=== PATIENT | female | born 1940 | race Caucasian/White ===

== ENCOUNTER 2016-12-22 07:56 | Emergency (ER) | payer MEDICARE ==
[~2016-12-22] VITALS: Ht 172.7 cm; Wt 58.0 kg
[~2016-12-22 07:56] MED LIST: ASPI81TA82 PO; AUGM875T PO; CALC1TAB53; COQ-200C; E 101000; FOLI400T30 PO; LIPI10TA PO; MULT1TAB46; NOVOLOGP2 SQ; NOVONP2 SQ; TELM40 PO; VITA100020; VITA200T2 PO; VITA500T83 PO
[2016-12-22 08:10] VITALS: BP 142/64; PULSE 101; RESP 16; TEMP 97.5; O2SAT 100
[2016-12-22] MEDS: SODIUM CHLOR 0.9% 1000 ML INJ 1,000 ML IV ONE ×2 (08:15→08:50)
--- NOTE | 2016-12-22 08:19 | PD ---
HPI Chief Complaint: Cardiac Complaint Time Seen by Provider: 08:03 Travel History International Travel<30 days: No Contact w/Intl Traveler<30days: No Traveled to known affect area: No History of Present Illness HPI This 76-year-old female says that her heart rate this morning was around 90 which is unusually fast for her. She says she felt weak and felt like she was given a pass out area he has a history of hypertension and diabetes. She checked her blood sugar and it was over 300. She is not aware of any fever or chills. She did not have any chest pain or shortness of breath. She took her NPH this morning as well as Plavix 3 units because of the elevation of blood sugar. PFSH Past Medical History Cancer: No Cardiovascular Problems: Yes High Cholesterol: Yes Diabetes: Yes Patient Takes Glucophage: No Diminished Hearing: No Endocrine: Yes Gastrointestinal Disorders: Yes (DIVERTICULOSIS) Genitourinary: No Hepatitis: No Hiatal Hernia: No Hypertension: Yes Immune Disorder: No Musculoskeletal: Yes (OSTEOPOROSIS) Neurologic: No Psychiatric: No Respiratory: No Thyroid Disease: No Tetanus Vaccination: Unknown Influenza Vaccination: No ?: Not Past Surgical History Abdominal Surgery: Yes (HERNIA REPAIR, APPENDECTOMY) AICD: No Appendectomy: Yes Eye Surgery: Yes (LEFT CATARACT) Genitourinary Surgery: No Hysterectomy: No Joint Replacement: No Oral Surgery: Yes (TONSILLECTOMY/ADENOIDECTOMY) Pacemaker: No Tonsillectomy: Yes Other Surgery: Yes Social History Alcohol Use: No Tobacco Use: No Substance Use: No Allergies-Medications (Allergen,Severity, Reaction): Coded Allergies: No Known Allergies (Unverified Adverse Reaction, Unknown, 12/22/16) Reported Meds & Prescriptions Reported Meds & Active Scripts Active Reported Vitamin E Water Soluble (Vitamin E) 1,000 Unit Cap 1,000 Units PO DAILY Vitamin B-12 ER (Cyanocobalamin) 1,000 Mcg Tab 1,000 Mcg PO DAILY Multiple Vitamin 1 Tab 1 Tab PO DAILY Micardis (Telmisartan) 40 Mg Tab 40 Mg PO DAILY Novolin N Inj (Insulin Human NPH) 1,000 Unit/10 Ml Vial 15 Units SQ DAILY Novolin N Inj (Insulin Human NPH) 1,000 Unit/10 Ml Vial 0 SQ DIRECTED Sliding Scale As Directed. Novolin 70-30 Inj (Insulin Human Isoph/Insulin Regular) 1,000 Unit/10 Ml Vial 5 Units SQ DAILY@0600 Folic Acid 0.4 Mg Tab 400 Mcg PO DAILY Coq-10 (Coenzyme Q10 (Ubidecarenone)) 400 Mg Cap 1 Tab PO DAILY Calcium & Magnesium + Zinc (Aavzgym-Hbwirsoqo-Dkql) 334-134-5 Mg Tab 1 Tab PO DAILY Atorvastatin (Atorvastatin Calcium) 10 Mg Tab 10 Mg PO HS Aspirin 81 Mg Chew 81 Mg CHEW DAILY Review of Systems General / Constitutional: No: Fever, Chills Eyes: No: Diploplia, Blurred Vision HENT: Positive: Lightheadedness, No: Headaches, Vertigo Cardiovascular: No: Chest Pain or Discomfort, Palpitations Respiratory: No: Shortness of Breath, Wheezing Gastrointestinal: No: Vomiting, Diarrhea Genitourinary: No: Urgency Musculoskeletal: No: Myalgias, Arthralgias Skin: No Rash Neurologic: Positive: Weakness Hematologic/Lymphatic: No: Easy Bruising Physical Exam Narrative GENERAL: Well-developed female. Heart rate is 72 SKIN: Focused skin assessment warm/dry. HEAD: Atraumatic. Normocephalic. EYES: Pupils equal and round. No scleral icterus. No injection or drainage. ENT: No nasal bleeding or discharge. Mucous membranes pink and moist. NECK: Trachea midline. No JVD. CARDIOVASCULAR: Regular rate and rhythm. No murmur appreciated. RESPIRATORY: No accessory muscle use. Clear to auscultation. Breath sounds equal bilaterally. GASTROINTESTINAL: Abdomen soft, non-tender, nondistended. Hepatic and splenic margins not palpable. MUSCULOSKELETAL: No obvious deformities. No clubbing. No cyanosis. No edema. NEUROLOGICAL: Awake and alert. No obvious cranial nerve deficits. Motor grossly within normal limits. Normal speech. PSYCHIATRIC: Appropriate mood and affect; insight and judgment normal. Data Data Last Documented VS Vital Signs Date Time Temp Pulse Resp B/P (MAP) Pulse Ox O2 Delivery O2 Flow Rate FiO2 12/22/16 08:15 88 16 97 Room Air 12/22/16 08:10 97.5 142/64 (90) Orders Orders Complete Blood Count With Diff (12/22/16 08:12) Comprehensive Metabolic Panel (12/22/16 08:12) Troponin I (12/22/16 08:12) Urinalysis - C+S If Indicated (12/22/16 08:12) Magnesium (Mg) (12/22/16 08:12) Beta Hydroxybutyrate (Acetone) (12/22/16 08:12) Sodium Chlor 0.9% 1000 Ml Inj (Ns 1000 M (12/22/16 08:15) Insulin Human Regular Inj (Novolin R Inj (12/22/16 09:30) Morphine Inj (Morphine Inj) (12/22/16 09:30) Insulin Human Regular Inj (Novolin R Inj (12/22/16 11:00) Labs Laboratory Tests Test 12/22/16 08:37 12/22/16 10:17 White Blood Count 7.2 TH/MM3 Red Blood Count 4.05 MIL/MM3 Hemoglobin 12.6 GM/DL Hematocrit 38.3 % Mean Corpuscular Volume 94.6 FL Mean Corpuscular Hemoglobin 31.3 PG Mean Corpuscular Hemoglobin Concent 33.0 % Red Cell Distribution Width 12.8 % Platelet Count 282 TH/MM3 Mean Platelet Volume 7.1 FL Neutrophils (%) (Auto) 83.0 % Lymphocytes (%) (Auto) 10.9 % Monocytes (%) (Auto) 2.8 % Eosinophils (%) (Auto) 2.5 % Basophils (%) (Auto) 0.8 % Neutrophils # (Auto) 5.9 TH/MM3 Lymphocytes # (Auto) 0.8 TH/MM3 Monocytes # (Auto) 0.2 TH/MM3 Eosinophils # (Auto) 0.2 TH/MM3 Basophils # (Auto) 0.1 TH/MM3 CBC Comment DIFF FINAL Differential Comment Blood Urea Nitrogen 22 MG/DL Creatinine 0.93 MG/DL Random Glucose 391 MG/DL Total Protein 6.8 GM/DL Albumin 3.7 GM/DL Calcium Level 8.8 MG/DL Magnesium Level 2.0 MG/DL Alkaline Phosphatase 94 U/L Aspartate Amino Transf (AST/SGOT) 24 U/L Alanine Aminotransferase (ALT/SGPT) 27 U/L Total Bilirubin 0.8 MG/DL Sodium Level 130 MEQ/L Potassium Level 4.1 MEQ/L Chloride Level 95 MEQ/L Carbon Dioxide Level 22.1 MEQ/L Anion Gap 13 MEQ/L Estimat Glomerular Filtration Rate 59 ML/MIN Troponin I LESS THAN 0.02 NG/ML B-Hydroxybutyrate 2.52 MMOL/L Urine Collection Type CLEAN CATCH Urine Color YELLOW Urine Turbidity CLEAR Urine pH 5.5 Urine Specific [place] 1.022 Urine Protein NEG mg/dL Urine Glucose (UA) 1000 OR GREATER mg/dL Urine Ketones 80 OR GREATER mg/dL Urine Occult Blood TRACE Urine Nitrite NEG Urine Bilirubin NEG Urine Leukocyte Esterase NEG Urine RBC 0-3 /hpf Urine Squamous Epithelial Cells 0-5 /hpf Microscopic Urinalysis Comment CULT NOT INDICATED Urine Collection Time 10:17 [facility] Medical Decision Making Medical Screen Exam Complete: Yes Emergency Medical Condition: Yes Medical Record Reviewed: Yes Differential Diagnosis Differential includes dysrhythmia, dehydration, hyperglycemia Narrative Course EKG shows sinus rhythm with first-degree AV block. It is unchanged from previous tracings. She was given some IV fluids and 10 units of regular insulin. On rechecking his blood sugar it is 214. She is stable for discharge Diagnosis Primary Impression: Hyperglycemia Disposition: 01 DISCHARGE HOME Condition: Stable Cezar Quinn MD Dec 22, 2016 08:19
[2016-12-22] MEDS ORDERED: VITA-141 PO (08:21)
[2016-12-22] MEDS ORDERED: ATOR10TA15 PO (08:21)
[2016-12-22] MEDS ORDERED: NOVONP2 SQ ×2 (08:21)
[2016-12-22] MEDS ORDERED: FOLI400T PO (08:21)
[2016-12-22] MEDS ORDERED: COEN400C PO (08:21)
[2016-12-22] MEDS ORDERED: ASPI-516 CHEW (08:21)
[2016-12-22] MEDS ORDERED: VITA10002 PO (08:21)
[2016-12-22] MEDS ORDERED: MULTTAB67 PO (08:21)
[2016-12-22] MEDS ORDERED: CALC1TAB53 PO (08:21)
[2016-12-22] MEDS ORDERED: TELM40 PO (08:21)
[2016-12-22] MEDS ORDERED: NOVO7030P2 SQ (08:21)
[2016-12-22 08:47] LABS: AUTOMATED NEUTROPHIL # 5.9 TH/MM3 (1.8-7.7); BASOPHIL # 0.1 TH/MM3 (0-0.2); BASOPHIL % 0.8 % (0.0-2.0); EOSINOPHIL # 0.2 TH/MM3 (0-0.4); EOSINOPHIL % 2.5 % (0.0-4.0); HEMATOCRIT 38.3 % (35.0-46.0); HEMO FLAGS DIFF FINAL; LYMPH % 10.9 % (9.0-44.0); LYMPHOCYTE # 0.8 TH/MM3 (1.0-4.8); MEAN CELL VOLUME 94.6 FL (80.0-100.0); MEAN CORPUSCULAR HEMOGLOBIN 31.3 PG (27.0-34.0); MONO % 2.8 % (0.0-8.0); PLATELET COUNT 282 TH/MM3 (150-450); RED BLOOD COUNT 4.05 MIL/MM3 (4.00-5.30); RED CELL DISTRIBUTION WIDTH 12.8 % (11.6-17.2); WHITE BLOOD COUNT 7.2 TH/MM3 (4.0-11.0)
[2016-12-22 08:56] LABS: CHLORIDE 95 MEQ/L (98-107); POTASSIUM 4.1 MEQ/L (3.5-5.1); SODIUM (NA) 130 MEQ/L (136-145)
[2016-12-22 08:59] LABS: ANION GAP 13 MEQ/L (5-15); BICARBONATE 22.1 MEQ/L (21.0-32.0)
[2016-12-22 09:00] LABS: BLOOD UREA NITROGEN 22 MG/DL (7-18)
[2016-12-22 09:02] LABS: ALT (GPT) 27 U/L (10-53); AST (GOT) 24 U/L (15-37)
[2016-12-22 09:03] LABS: GLOMERULAR FILTRATION RATE 59 ML/MIN (>89)
[2016-12-22 09:04] LABS: TOTAL BILIRUBIN ADULT 0.8 MG/DL (0.2-1.0)
[2016-12-22 09:05] LABS: ALKALINE PHOSPHATASE 94 U/L (45-117)
[2016-12-22 09:14] LABS: BETA-HYDROXYBUTYRATE 2.52 MMOL/L (0.00-0.39)
[2016-12-22] MEDS ORDERED: INSULIN HUMAN REGULAR 1,000 UNITS/10 ML VIAL SQ ONE ×2 (09:30→11:00)
[2016-12-22] MEDS ORDERED: MORPHINE SULFATE 4 MG/ML INJ IV PUSH ONE (09:30)
[2016-12-22 10:21] LABS: BLOOD, URINE TRACE (NEG); GLUCOSE,URINE 1000 OR GREATER mg/dL (NEG); KETONE, URINE 80 OR GREATER mg/dL (NEG); NITRITE,URINE NEG (NEG); PH, URINE 5.5 (5.0-8.5)
[2016-12-22 10:25] LABS: METHOD OF COLLECTION CLEAN CATCH; URINE COLOR YELLOW (YELLW/STRAW)
[2016-12-22 10:26] LABS: COMMENT (UR) CULT NOT INDICATED; CULTURE IF INDICATED CULT NOT INDICATED; RBC, URINE 0-3 /hpf (0-3); SQUAMOUS EPITHELIAL CELL URINE 0-5 /hpf (0-5)
[2016-12-22 11:16] VITALS: BP 140/62
--- NOTE | 2016-12-23 10:06 | EKG ---
Date Performed: 12/22/2016 Time Performed: 08:05:59 PTAGE: 76 years EKG: Sinus rhythm WITH FIRST DEGREE AV BLOCK ABNORMAL ECG PREVIOUS TRACING : 02/13/2015 11.50 DOCTOR: Shade Jansen Interpretating Date/Time 12/23/2016 10:05:36
== END 2016-12-22 11:18 | disposition home or self-care (01) ==
LOC: PHED 07:56
DX: E11.65 Type 2 diabetes mellitus with hyperglycemia (principal); E78.00 Pure hypercholesterolemia, unspecified; I10 Essential (primary) hypertension; R94.31 Abnormal electrocardiogram [ECG] [EKG]; Z79.4 Long term (current) use of insulin
CPT/HCPCS: 80053; 81001; 82010; 83735; 84484; 85025; 93005; 96372; 99284; J1815; J7030

== ENCOUNTER 2017-02-17 12:12 | Inpatient (IN) | payer MEDICARE ==
[2017-02-17] VITALS (7 sets, daily range): BP systolic 114–193; BP diastolic 57–81; PULSE 72–83; RESP 16–20; TEMP 96.5–97.7; O2SAT 96–100
[~2017-02-17] VITALS: Ht 170.2 cm; Wt 60.0 kg
[~2017-02-17 12:12] MED LIST changes: +ASPI-516 CHEW; -ASPI81TA82 PO; +ATOR10TA15 PO; -AUGM875T PO; -CALC1TAB53; +CALC1TAB53 PO; +COEN400C PO; -COQ-200C; -E 101000; +FOLI400T PO; -FOLI400T30 PO; -LIPI10TA PO; -MULT1TAB46; +MULTTAB67 PO; +NOVO7030P2 SQ; -NOVOLOGP2 SQ; +VITA-141 PO; +VITA10002 PO; -VITA100020; -VITA200T2 PO; -VITA500T83 PO
[2017-02-17] MEDS ORDERED: HYDROmorphone HCL PF 2 MG/ML VIAL IV PUSH ONE (12:45)
[2017-02-17] MEDS ORDERED: SODIUM CHLORIDE 0.9% FLUSH 10 ML FLUSH IVF PRN (12:45)
[2017-02-17] MEDS ORDERED: ONDANSETRON HCL 4 MG/2 ML VIAL IVP ONE (12:45)
[2017-02-17 13:08] LABS: AUTOMATED NEUTROPHIL # 4.5 TH/MM3 (1.8-7.7); BASOPHIL % 0.8 % (0.0-2.0); EOSINOPHIL # 0.1 TH/MM3 (0-0.4); EOSINOPHIL % 1.8 % (0.0-4.0); HEMATOCRIT 38.7 % (35.0-46.0); LYMPH % 20.8 % (9.0-44.0); LYMPHOCYTE # 1.3 TH/MM3 (1.0-4.8); MEAN CELL VOLUME 97.5 FL (80.0-100.0); MEAN CORPUSCULAR HEMOGLOBIN 32.6 PG (27.0-34.0); MEAN CORPUSCULAR HGB CONC 33.5 % (32.0-36.0); MEAN PLATELET VOLUME 7.3 FL (7.0-11.0); MONO % 6.2 % (0.0-8.0); MONOCYTE # 0.4 TH/MM3 (0-0.9); NEUT % 70.4 % (16.0-70.0); PLATELET COUNT 265 TH/MM3 (150-450); RED BLOOD COUNT 3.97 MIL/MM3 (4.00-5.30); WHITE BLOOD COUNT 6.3 TH/MM3 (4.0-11.0)
--- NOTE | 2017-02-17 13:19 | RADRPT ---
EXAM DATE/TIME: 02/17/2017 12:53 [facility] COMPARISON: No previous studies available for comparison. INDICATIONS : Right hip pain after fall. MEDICAL HISTORY : None. SURGICAL HISTORY : None. ENCOUNTER: Initial ACUITY: 1 day PAIN SCORE: 10/10 LOCATION: Right hip FINDINGS: Intertrochanteric fracture right hip with angulation. Left hemipelvis intact CONCLUSION: Intertrochanteric fracture right hip Josh Stoner MD FACR on February 17, 2017 at 13:16 Board Certified Radiologist. This report was verified electronically.
[2017-02-17 13:24] LABS: ALT (GPT) 29 U/L (10-53)
[2017-02-17 13:26] LABS: ALKALINE PHOSPHATASE 97 U/L (45-117); TOTAL BILIRUBIN ADULT 0.4 MG/DL (0.2-1.0); TOTAL PROTEIN 7.1 GM/DL (6.4-8.2)
[2017-02-17 13:27] LABS: ALBUMIN 3.7 GM/DL (3.4-5.0); AST (GOT) 33 U/L (15-37); BICARBONATE 24.7 MEQ/L (21.0-32.0); BLOOD UREA NITROGEN 17 MG/DL (7-18); CALCIUM 8.6 MG/DL (8.5-10.1); CHLORIDE 101 MEQ/L (98-107); CREATININE 0.84 MG/DL (0.50-1.00); GLOMERULAR FILTRATION RATE 66 ML/MIN (>89); GLUCOSE,RANDOM 329 MG/DL (74-106); SODIUM (NA) 133 MEQ/L (136-145)
--- NOTE | 2017-02-17 13:37 | RADRPT ---
EXAM DATE/TIME: 02/17/2017 12:48 [facility] COMPARISON: No previous studies available for comparison. INDICATIONS : Shortness of breath. MEDICAL HISTORY : None. SURGICAL HISTORY : None. ENCOUNTER: Initial ACUITY: 1 day PAIN SCORE: 0/10 LOCATION: Bilateral chest FINDINGS: A single view of the chest demonstrates the lungs to be symmetrically aerated without evidence of mas s, infiltrate or effusion. The cardiomediastinal contours are unremarkable. Osseous structures are intact. CONCLUSION: No acute disease. Wilfrido Mendoza MD on February 17, 2017 at 13:35 Board Certified Radiologist. This report was verified electronically.
--- NOTE | 2017-02-17 13:58 | PD ---
HPI Chief Complaint: Fall Time Seen by Provider: 12:29 Travel History International Travel<30 days: No Contact w/Intl Traveler<30days: No Traveled to known affect area: No History of Present Illness HPI 76-year-old female presents the emergency department via EMS status [place] mall. Patient is here with pain to the right hip. Patient has shortening and internal rotation of the right lower leg. Pain is 10 out of 10. Patient did receive 6 mg of morphine in the ambulance. Patient last ate a meal at 9:30 this morning. Patient did have a Coca[employer] after her fall and she felt her blood sugar might be getting low. A sugar and the rate was 336. Patient takes medication for hypertension and type II diabetes requiring insulin. PFSH Past Medical History Cancer: No Cardiovascular Problems: Yes High Cholesterol: Yes Diabetes: Yes (on insulin) Patient Takes Glucophage: No Diminished Hearing: No Endocrine: Yes Gastrointestinal Disorders: Yes (DIVERTICULOSIS) Genitourinary: No Hepatitis: No Hiatal Hernia: Yes Hypertension: Yes Immune Disorder: No Musculoskeletal: Yes (OSTEOPOROSIS) Neurologic: No Psychiatric: No Respiratory: No Thyroid Disease: No Tetanus Vaccination: Unknown ?: Not Past Surgical History Abdominal Surgery: Yes (HERNIA REPAIR, APPENDECTOMY) AICD: No Appendectomy: Yes Eye Surgery: Yes (LEFT CATARACT) Genitourinary Surgery: No Hysterectomy: No Joint Replacement: No Oral Surgery: Yes (TONSILLECTOMY/ADENOIDECTOMY) Pacemaker: No Tonsillectomy: Yes Other Surgery: Yes Social History Alcohol Use: No Tobacco Use: No Substance Use: No Allergies-Medications (Allergen,Severity, Reaction): Coded Allergies: No Known Allergies (Unverified Adverse Reaction, Unknown, 02/17/17) Reported Meds & Prescriptions Reported Meds & Active Scripts Active Reported Vitamin E Water Soluble (Vitamin E) 1,000 Unit Cap 1,000 Units PO DAILY Vitamin B-12 ER (Cyanocobalamin) 1,000 Mcg Tab 1,000 Mcg PO DAILY Multiple Vitamin 1 Tab 1 Tab PO DAILY Micardis (Telmisartan) 40 Mg Tab 40 Mg PO DAILY Novolin N Inj (Insulin Human NPH) 1,000 Unit/10 Ml Vial 15 Units SQ DAILY Novolin N Inj (Insulin Human NPH) 1,000 Unit/10 Ml Vial 0 SQ DIRECTED Sliding Scale As Directed. Novolin 70-30 Inj (Insulin Human Isoph/Insulin Regular) 1,000 Unit/10 Ml Vial 5 Units SQ DAILY@0600 Folic Acid 0.4 Mg Tab 400 Mcg PO DAILY Coq-10 (Coenzyme Q10 (Ubidecarenone)) 400 Mg Cap 1 Tab PO DAILY Calcium & Magnesium + Zinc (Fdcfagz-Budjsgauk-Zkws) 334-134-5 Mg Tab 1 Tab PO DAILY Atorvastatin (Atorvastatin Calcium) 10 Mg Tab 10 Mg PO HS Aspirin 81 Mg Chew 81 Mg CHEW DAILY Review of Systems Except as stated in HPI: all other systems reviewed are Neg General / Constitutional: No: Fever Eyes: No: Visual changes HENT: No: Headaches Cardiovascular: No: Chest Pain or Discomfort Respiratory: No: Shortness of Breath Gastrointestinal: No: Abdominal Pain Genitourinary: No: Dysuria Musculoskeletal: Positive: Arthralgias, Limited ROM, Pain Skin: No Rash Neurologic: No: Weakness Psychiatric: No: Depression Endocrine: No: Polydipsia Hematologic/Lymphatic: No: Easy Bruising Physical Exam Narrative GENERAL: Patient is alert and oriented 3 and in moderate distress. SKIN: Warm and dry. Normal color. Normal turgor. HEAD: Atraumatic. Normocephalic. EYES: Pupils equal and round. No scleral icterus. No injection or drainage. ENT: No nasal bleeding or discharge. Mucous membranes pink and moist. No dental injury. Pharynx is clear. Airway is patent. NECK: Trachea midline. Supple. CARDIOVASCULAR: Regular rate and rhythm. RESPIRATORY: No accessory muscle use. Clear to auscultation. Breath sounds equal bilaterally. GASTROINTESTINAL: Abdomen soft, non-tender, nondistended. Hepatic and splenic margins not palpable. MUSCULOSKELETAL: Extremities without clubbing, cyanosis, or edema. Patient has obvious deformity to the right hip with localized swelling, external rotation and shortening. Neurovascular exam of the distal right lower leg is normal. Patient is able wiggle her toes without difficulty. Pulses are intact. NEUROLOGICAL: Awake and alert. No obvious cranial nerve deficits. Motor grossly within normal limits. Normal speech. PSYCHIATRIC: Appropriate mood and affect; insight and judgment normal. Data Data Last Documented VS Vital Signs Date Time Temp Pulse Resp B/P (MAP) Pulse Ox O2 Delivery O2 Flow Rate FiO2 02/17/17 13:45 82 16 190/74 (112) 96 Room Air 02/17/17 12:20 97.7 Orders Orders Electrocardiogram (02/17/17 12:33) Complete Blood Count With Diff (02/17/17 12:33) Comprehensive Metabolic Panel (02/17/17 12:33) Prothrombin Time / Inr (Pt) (02/17/17 12:33) Act Partial Throm Time (Ptt) (02/17/17 12:33) Urinalysis - C+S If Indicated (02/17/17 12:33) Type And Screen (02/17/17 12:33) Chest, Single Ap (02/17/17 12:33) Hip, Uni(Ap&Lat) W Ap Pelvis (02/17/17 12:33) Iv Access Insert/Monitor (02/17/17 12:33) Urinary Catheter Insert/Apply (02/17/17 12:33) Oximetry (02/17/17 12:33) Ecg Monitoring (02/17/17 12:33) Ondansetron Inj (Zofran Inj) (02/17/17 12:45) Sodium Chloride 0.9% Flush (Ns Flush) (02/17/17 12:45) Hydromorphone Pf Inj (Dilaudid Pf Inj) (02/17/17 12:45) Labs Laboratory Tests Test 02/17/17 12:30 02/17/17 13:35 White Blood Count 6.3 TH/MM3 Red Blood Count 3.97 MIL/MM3 Hemoglobin 13.0 GM/DL Hematocrit 38.7 % Mean Corpuscular Volume 97.5 FL Mean Corpuscular Hemoglobin 32.6 PG Mean Corpuscular Hemoglobin Concent 33.5 % Red Cell Distribution Width 14.0 % Platelet Count 265 TH/MM3 Mean Platelet Volume 7.3 FL Neutrophils (%) (Auto) 70.4 % Lymphocytes (%) (Auto) 20.8 % Monocytes (%) (Auto) 6.2 % Eosinophils (%) (Auto) 1.8 % Basophils (%) (Auto) 0.8 % Neutrophils # (Auto) 4.5 TH/MM3 Lymphocytes # (Auto) 1.3 TH/MM3 Monocytes # (Auto) 0.4 TH/MM3 Eosinophils # (Auto) 0.1 TH/MM3 Basophils # (Auto) 0.0 TH/MM3 CBC Comment DIFF FINAL Differential Comment Prothrombin Time 10.0 SEC Prothromb Time International Ratio 1.0 RATIO Activated Partial Thromboplast Time 22.9 SEC Blood Urea Nitrogen 17 MG/DL Creatinine 0.84 MG/DL Random Glucose 329 MG/DL Total Protein 7.1 GM/DL Albumin 3.7 GM/DL Calcium Level 8.6 MG/DL Alkaline Phosphatase 97 U/L Aspartate Amino Transf (AST/SGOT) 33 U/L Alanine Aminotransferase (ALT/SGPT) 29 U/L Total Bilirubin 0.4 MG/DL Sodium Level 133 MEQ/L Potassium Level 4.2 MEQ/L Chloride Level 101 MEQ/L Carbon Dioxide Level 24.7 MEQ/L Anion Gap 7 MEQ/L Estimat Glomerular Filtration Rate 66 ML/MIN MDM Medical Decision Making Medical Screen Exam Complete: Yes Emergency Medical Condition: Yes Differential Diagnosis Fall. Right hip pain. Right hip fracture. Narrative Course Patient appears mildly stable at time of exam. Labs ordered including CBC, CMP, PTT and INR, type and screen, EKG and chest x- ray. X-ray of the right hip and pelvis is ordered. IV access is obtained patient is given 1 mg Dilantin IV. Patient is made nothing by mouth. Chest x-ray is unremarkable. EKG shows normal sinus rhythm without significant ST-T changes. X-ray of the right hip shows intertrochanteric fracture with displacement and rotation. CBC unremarkable. Coagulation studies are unremarkable. Chemistries unremarkable except for sodium 133, GFR 66, random glucose is 329. Johnson catheter is placed. Urinalysis is ordered. Call was placed to Dr. Jay and the patient's findings are discussed. Dr. Jay requests hospitalist admission and keeping her nothing by mouth she may go to surgery this afternoon. Call was placed to [facility] hospitalist for admission orders. Admitting Information Admitting Physician Requests: Observation Condition: Stable Ahsan Cabrera Feb 17, 2017 13:58
[2017-02-17 14:07] LABS: BILIRUBIN, URINE NEG (NEG); BLOOD, URINE NEG (NEG); GLUCOSE,URINE 1000 mg/dL (NEG); KETONE, URINE 10 mg/dL (NEG); MUCUS URINE FEW /lpf (OCC); NITRITE,URINE NEG (NEG); PH, URINE 5.5 (5.0-8.5); URINE COLOR LIGHT-YELLOW (YELLW/STRAW); URINE LEUKOCYTE ESTERASE NEG (NEG)
--- NOTE | 2017-02-17 14:12 | PD ---
Physical Exam Date Seen by Provider: Feb 17, 2017 Narrative This patient presents with a right hip injury. She lost her balance and fell and landed on her right hip while shopping at the mall. Data Data Last Documented VS Vital Signs Date Time Temp Pulse Resp B/P (MAP) Pulse Ox O2 Delivery O2 Flow Rate FiO2 02/17/17 13:45 82 16 190/74 (112) 96 Room Air 02/17/17 12:20 97.7 Orders Orders Electrocardiogram (02/17/17 12:33) Complete Blood Count With Diff (02/17/17 12:33) Comprehensive Metabolic Panel (02/17/17 12:33) Prothrombin Time / Inr (Pt) (02/17/17 12:33) Act Partial Throm Time (Ptt) (02/17/17 12:33) Urinalysis - C+S If Indicated (02/17/17 12:33) Type And Screen (02/17/17 12:33) Chest, Single Ap (02/17/17 12:33) Hip, Uni(Ap&Lat) W Ap Pelvis (02/17/17 12:33) Iv Access Insert/Monitor (02/17/17 12:33) Urinary Catheter Insert/Apply (02/17/17 12:33) Oximetry (02/17/17 12:33) Ecg Monitoring (02/17/17 12:33) Ondansetron Inj (Zofran Inj) (02/17/17 12:45) Sodium Chloride 0.9% Flush (Ns Flush) (02/17/17 12:45) Hydromorphone Pf Inj (Dilaudid Pf Inj) (02/17/17 12:45) Admit To Inpatient (02/17/17 ) Code Status (02/17/17 14:08) Vital Signs (Adult) Q4H (02/17/17 14:08) Activity Bed Rest (02/17/17 14:08) Diet Npo (02/17/17 Dinner) Sodium Chloride 0.9% Flush (Ns Flush) (02/17/17 14:15) Sodium Chloride 0.9% Flush (Ns Flush) (02/17/17 21:00) Acetaminophen (Tylenol) (02/17/17 14:15) Ondansetron Inj (Zofran Inj) (02/17/17 14:15) Basic Metabolic Panel (Bmp) (02/18/17 06:00) Complete Blood Count With Diff (02/18/17 06:00) Electrocardiogram (02/17/17 14:08) Pt Request For Service (02/17/17 14:08) Scd Bilateral/Knee High CONNER.BID (02/17/17 14:08) Naloxone Inj (Narcan Inj) (02/17/17 14:15) Magnesium Hydroxide Liq (Milk Of Magnesi (02/17/17 14:15) Inpatient Certification (02/17/17 ) Labs Laboratory Tests Test 02/17/17 12:30 02/17/17 13:35 White Blood Count 6.3 TH/MM3 Red Blood Count 3.97 MIL/MM3 Hemoglobin 13.0 GM/DL Hematocrit 38.7 % Mean Corpuscular Volume 97.5 FL Mean Corpuscular Hemoglobin 32.6 PG Mean Corpuscular Hemoglobin Concent 33.5 % Red Cell Distribution Width 14.0 % Platelet Count 265 TH/MM3 Mean Platelet Volume 7.3 FL Neutrophils (%) (Auto) 70.4 % Lymphocytes (%) (Auto) 20.8 % Monocytes (%) (Auto) 6.2 % Eosinophils (%) (Auto) 1.8 % Basophils (%) (Auto) 0.8 % Neutrophils # (Auto) 4.5 TH/MM3 Lymphocytes # (Auto) 1.3 TH/MM3 Monocytes # (Auto) 0.4 TH/MM3 Eosinophils # (Auto) 0.1 TH/MM3 Basophils # (Auto) 0.0 TH/MM3 CBC Comment DIFF FINAL Differential Comment Prothrombin Time 10.0 SEC Prothromb Time International Ratio 1.0 RATIO Activated Partial Thromboplast Time 22.9 SEC Blood Urea Nitrogen 17 MG/DL Creatinine 0.84 MG/DL Random Glucose 329 MG/DL Total Protein 7.1 GM/DL Albumin 3.7 GM/DL Calcium Level 8.6 MG/DL Alkaline Phosphatase 97 U/L Aspartate Amino Transf (AST/SGOT) 33 U/L Alanine Aminotransferase (ALT/SGPT) 29 U/L Total Bilirubin 0.4 MG/DL Sodium Level 133 MEQ/L Potassium Level 4.2 MEQ/L Chloride Level 101 MEQ/L Carbon Dioxide Level 24.7 MEQ/L Anion Gap 7 MEQ/L Estimat Glomerular Filtration Rate 66 ML/MIN Urine Color LIGHT-YELLOW Urine Turbidity CLEAR Urine pH 5.5 Urine Specific [place] 1.018 Urine Protein NEG mg/dL Urine Glucose (UA) 1000 mg/dL Urine Ketones 10 mg/dL Urine Occult Blood NEG Urine Nitrite NEG Urine Bilirubin NEG Urine Urobilinogen LESS THAN 2.0 MG/DL Urine Leukocyte Esterase NEG Urine RBC LESS THAN 1 /hpf Urine WBC LESS THAN 1 /hpf Urine Mucus FEW /lpf Microscopic Urinalysis Comment CATH-CULT NOT IND MDM Supervised Visit with MARYCHUY: Yes Narrative Course I, Dr. Reese, have reviewed the advance practice practitioner's documentation and am in agreement, met with the patient face to face, made the diagnosis, and the medical decision making was done by me. *My assessment and Findings: The patient is awake and alert. Her right lower extremity is shortened and externally rotated. She has marked tenderness in the right groin. She is distally neurovascularly intact. X-ray to my interpretation shows a right intertrochanteric fracture. Please see Krystian Cabrera PA-C's note for results of laboratory and radiographic evaluation, ED course, final diagnosis and disposition Condition: Stable Virginia Reese MD Feb 17, 2017 14:12
[2017-02-17] MEDS ORDERED: ACETAMINOPHEN 325 MG TAB PO PRN (14:15)
[2017-02-17] MEDS ORDERED: cloNIDine HCL 0.2 MG TAB PO PRN (14:15)
[2017-02-17] MEDS ORDERED: SODIUM CHLORIDE 0.9% FLUSH 10 ML FLUSH IV FLUSH PRN (14:15)
[2017-02-17] MEDS ORDERED: MAGNESIUM HYDROXIDE SUSP 30 ML CUP PO PRN (14:15)
[2017-02-17] MEDS ORDERED: ACETAMINOPHEN/HYDROcodone 325 MG/5 MG TAB PO PRN (14:15)
[2017-02-17] MEDS ORDERED: HYDROmorphone HCL PF 2 MG/ML VIAL IV PUSH PRN (14:15)
[2017-02-17] MEDS ORDERED: ENALAPRILAT 1.25 MG/ML VIAL IV PRN (14:15)
[2017-02-17] MEDS ORDERED: ONDANSETRON HCL 4 MG/2 ML VIAL IVP PRN ×2 (14:15→18:00)
[2017-02-17] MEDS ORDERED: NALOXONE HCL 0.4 MG/ML AMP IV PUSH PRN (14:15)
--- NOTE | 2017-02-17 14:30 | HHI.HP ---
HPI Service [facility] Hospitalists Primary Care Physician Benny Johnson MD Admission Diagnosis Right Hip Fracture Chief Complaint: Fall with hip pain Travel History International Travel<30 Days: No Contact w/Intl Traveler <30 Da: No Traveled to Known Affected Are: No History of Present Illness This is a 76-year-old female patient with past medical history which includes diabetes mellitus requiring insulin, first-degree AV block, chronic anemia, hypertension, hyperlipidemia who presents the emergency department via EMS status [place]. Patient reports that she was looking one way and walking the other way then tripped and fell. On admission patient has shortening and internal rotation of the right lower leg. Patient denies LOC or head trauma. X-ray reviewed and reveals right hip intertrochanteric fracture. Patient is S/P intramedullary femoral nail placement with Dr. Jay 02/17/17. Patient reports pain is tolerable at this time. Review of Systems Constitutional: DENIES: Fatigue, Fever, Chills Eyes: DENIES: Blurred vision, Diplopia, Vision loss Respiratory: DENIES: Cough, Sputum production, Shortness of breath Cardiovascular: DENIES: Chest pain, Palpitations, Dyspnea on Exertion Gastrointestinal: DENIES: Abdominal pain, Constipation, Diarrhea, Nausea, Vomiting Musculoskeletal: COMPLAINS OF: Joint pain, Muscle aches, Joint Swelling Neurologic: DENIES: Headache, Seizures, Speech Problems Psychiatric: DENIES: Anxiety, Confusion, Depression Past Family Social History Past Medical History diabetes mellitus requiring insulin, first-degree AV block, chronic anemia, hypertension, hyperlipidemia Past Surgical History Appendectomy, cataract surgery, colonoscopy, and femoral hernia repair, inguinal hernia repair, tonsillectomy and adenoidectomy Reported Medications Vitamin E Water Soluble (Vitamin E) 1,000 Unit Cap 1,000 Units PO DAILY Vitamin B-12 ER (Cyanocobalamin) 1,000 Mcg Tab 1,000 Mcg PO DAILY Multiple Vitamin 1 Tab 1 Tab PO DAILY Micardis (Telmisartan) 40 Mg Tab 40 Mg PO DAILY Novolin N Inj (Insulin Human NPH) 1,000 Unit/10 Ml Vial 15 Units SQ DAILY Novolin N Inj (Insulin Human NPH) 1,000 Unit/10 Ml Vial 0 SQ DIRECTED Sliding Scale As Directed. Novolin 70-30 Inj (Insulin Human Isoph/Insulin Regular) 1,000 Unit/10 Ml Vial 5 Units SQ DAILY@0600 Folic Acid 0.4 Mg Tab 400 Mcg PO DAILY Coq-10 (Coenzyme Q10 (Ubidecarenone)) 400 Mg Cap 1 Tab PO DAILY Calcium & Magnesium + Zinc (Avlhljm-Jlghkxlur-Lacv) 334-134-5 Mg Tab 1 Tab PO DAILY Atorvastatin (Atorvastatin Calcium) 10 Mg Tab 10 Mg PO HS Aspirin 81 Mg Chew 81 Mg CHEW DAILY Allergies: Coded Allergies: No Known Allergies (Unverified Adverse Reaction, Unknown, 02/17/17) Active Ordered Medications Current Medications Medications (Trade) Dose Ordered Sig/Afshan Route Start Time Stop Time Status Last Admin (NS Flush) 2 ml UNSCH PRN IVF 02/17/17 12:45 (NS Flush) 2 ml UNSCH PRN IV FLUSH 02/17/17 14:15 UNV (NS Flush) 2 ml BID IV FLUSH 02/17/17 21:00 UNV (Tylenol) 650 mg Q4H PRN PO 02/17/17 14:15 UNV (Zofran Inj) 4 mg Q6H PRN IVP 02/17/17 14:15 UNV (Narcan Inj) 0.4 mg UNSCH PRN IV PUSH 02/17/17 14:15 UNV (Milk Of [place] Liq) 30 ml Q12H PRN PO 02/17/17 14:15 UNV ([place] 5-325 Mg) 1 tab Q6H PRN PO 02/17/17 14:15 UNV (Dilaudid Pf Inj) 1 mg Q4H PRN IV PUSH 02/17/17 14:15 UNV (NovoLOG SUPPLEMENTAL SCALE) 1 ACHS SLIDING SCALE SQ 02/17/17 17:00 UNV (Aspirin Chew) 81 mg DAILY CHEW 02/18/17 09:00 UNV (Lipitor) 10 mg HS PO 02/17/17 21:00 UNV Non-Formulary Medication 40 mg DAILY PO 02/18/17 09:00 UNV (Vasotec Inj) 1.25 mg Q6H PRN IV 02/17/17 14:15 UNV (Catapres) 0.2 mg Q6H PRN PO 02/17/17 14:15 UNV Family History Reviewed and noncontributory Social History Denies EtOH use tobacco use or illicit drug use Physical Exam Vital Signs Vital Signs Date Time Temp Pulse Resp B/P (MAP) Pulse Ox O2 Delivery O2 Flow Rate FiO2 02/17/17 13:45 82 16 190/74 (112) 96 Room Air 02/17/17 13:43 18 02/17/17 12:37 18 100 02/17/17 12:37 74 100 02/17/17 12:20 97.7 72 20 193/81 (118) 99 Physical Exam GENERAL: This is a well-nourished, well-developed patient, in no apparent distress. SKIN: Post- op dressing dry and intact CARDIOVASCULAR: Regular rate and rhythm without murmurs, gallops, or rubs. RESPIRATORY: Clear to auscultation. Breath sounds equal bilaterally. No wheezes , rales, or rhonchi. GASTROINTESTINAL: Abdomen soft, non-tender, nondistended. MUSCULOSKELETAL: Extremities without clubbing, cyanosis, or edema. No joint tenderness, effusion, or edema noted. No calf tenderness. Negative Homans sign bilaterally. Right lower extremity post-op NEUROLOGICAL: Awake and alert. No focal deficits appreciated. Sensory grossly within normal limits. Five out of 5 muscle strength in all muscle groups, with the exception of right lower extremity secondary to fracture. Normal speech. Laboratory Laboratory Tests Test 02/17/17 12:30 02/17/17 13:35 White Blood Count 6.3 Red Blood Count 3.97 Hemoglobin 13.0 Hematocrit 38.7 Mean Corpuscular Volume 97.5 Mean Corpuscular Hemoglobin 32.6 Mean Corpuscular Hemoglobin Concent 33.5 Red Cell Distribution Width 14.0 Platelet Count 265 Mean Platelet Volume 7.3 Neutrophils (%) (Auto) 70.4 Lymphocytes (%) (Auto) 20.8 Monocytes (%) (Auto) 6.2 Eosinophils (%) (Auto) 1.8 Basophils (%) (Auto) 0.8 Neutrophils # (Auto) 4.5 Lymphocytes # (Auto) 1.3 Monocytes # (Auto) 0.4 Eosinophils # (Auto) 0.1 Basophils # (Auto) 0.0 CBC Comment DIFF FINAL Differential Comment Prothrombin Time 10.0 Prothromb Time International Ratio 1.0 Activated Partial Thromboplast Time 22.9 Blood Urea Nitrogen 17 Creatinine 0.84 Random Glucose 329 Total Protein 7.1 Albumin 3.7 Calcium Level 8.6 Alkaline Phosphatase 97 Aspartate Amino Transf (AST/SGOT) 33 Alanine Aminotransferase (ALT/SGPT) 29 Total Bilirubin 0.4 Sodium Level 133 Potassium Level 4.2 Chloride Level 101 Carbon Dioxide Level 24.7 Anion Gap 7 Estimat Glomerular Filtration Rate 66 Urine Color LIGHT-YELLOW Urine Turbidity CLEAR Urine pH 5.5 Urine Specific [place] 1.018 Urine Protein NEG Urine Glucose (UA) 1000 Urine Ketones 10 Urine Occult Blood NEG Urine Nitrite NEG Urine Bilirubin NEG Urine Urobilinogen LESS THAN 2.0 Urine Leukocyte Esterase NEG Urine RBC LESS THAN 1 Urine WBC LESS THAN 1 Urine Mucus FEW Microscopic Urinalysis Comment CATH-CULT NOT IND Result Diagram: 02/17/17 1230 02/17/17 1230 Imaging Last Impressions Hip and Pelvis X-Ray 02/17/17 123 Signed Impressions: Service Date/Time: Friday, February 17, 2017 12:53 - CONCLUSION: Intertrochanteric fracture right hip Josh Stoner MD FACR Chest X-Ray 02/17/171232 Signed Impressions: Service Date/Time: Friday, February 17, 2017 12:48 - CONCLUSION: No acute disease. Wilfrido Mendoza MD Caprini VTE Risk Assessment Caprini VTE Risk Assessment: Mod/High Risk (score >= 2) Caprini Risk Assessment Model Point Value = 1 Point Value = 2 Point Value = 3 Point Value = 5 Age 41-60 Minor surgery BMI > 25 kg/m2 Swollen legs Varicose veins or History of unexplained or recurrent spontaneous Oral contraceptives or hormone replacement Sepsis (< 1 month) Serious lung disease, including pneumonia (< 1 month) Abnormal pulmonary function Acute myocardial infarction Congestive heart failure (< 1 month) History of inflammatory bowel disease Medical patient at bed rest Age 61-74 Arthroscopic surgery Major open surgery (> 45 min) Laparoscopic surgery (> 45 min) Malignancy Confined to bed (> 72 hours) Immobilizing plaster cast Central venous access Age >= 75 History of VTE Family history of VTE Factor V Leiden Prothrombin [id number] Lupus anticoagulant Anticardiolipin antibodies Elevated serum homocysteine Heparin-induced thrombocytopenia Other congenital or acquired thrombophilia Stroke (< 1 month) Elective arthroplasty Hip, pelvis, or leg fracture Acute spinal cord injury (< 1 month) Prophylaxis Regimen Total Risk Factor Score Risk Level Prophylaxis Regimen 0-1 Low Early ambulation 2 Moderate Order ONE of the following: *Sequential Compression Device (SCD) *Heparin 5000 units SQ BID 3-4 Higher Order ONE of the following medications: *Heparin 5000 units SQ TID *Enoxaparin/Lovenox 40 mg SQ daily (WT < 150 kg, CrCl > 30 mL/min) *Enoxaparin/Lovenox 30 mg SQ daily (WT < 150 kg, CrCl > 10-29 mL/min) *Enoxaparin/Lovenox 30 mg SQ BID (WT < 150 kg, CrCl > 30 mL/min) AND/OR *Sequential Compression Device (SCD) 5 or more Highest Order ONE of the following medications: *Heparin 5000 units SQ TID (Preferred with Epidurals) *Enoxaparin/Lovenox 40 mg SQ daily (WT < 150 kg, CrCl > 30 mL/min) *Enoxaparin/Lovenox 30 mg SQ daily (WT < 150 kg, CrCl > 10-29 mL/min) *Enoxaparin/Lovenox 30 mg SQ BID (WT < 150 kg, CrCl > 30 mL/min) AND *Sequential Compression Device (SCD) Assessment and Plan Problem List: (1) Hip fracture, right ICD Codes: S72.001A - Fracture of unspecified part of neck of right femur, initial encounter for closed fracture Plan: 76 shows status post trip and fall X-ray reviewed and reveals right hip intertrochanteric fracture Orthopedic surgery consulted [place] by mouth and hydrocodone IV as needed for pain s/p R intramedullary femoral nail 02/17/17 50% PWB Hgb dropped from 13.0 ->9.6 recheck cbc in AM DVT prophylaxis with SCDs further DVT prophylaxis per orthopedic surgery (2) Diabetes mellitus ICD Codes: E11.9 - Type 2 diabetes mellitus without complications Status: Chronic Plan: Diabetic diet Accu-Cheks before meals at bedtime with sliding scale insulin coverage Patient's home regimen Novolin N 16 units SQ QAM will start Novolin N 10 units SQ QAM (3) Hypertension ICD Codes: I10 - Essential (primary) hypertension Status: Chronic Plan: Continue patient's home Micardis monitor blood pressure trend Clonidine and Vasotec when necessary for hypertension (4) Hyperlipidemia ICD Codes: E78.5 - Hyperlipidemia, unspecified Plan: Continue patient's home atorvastatin Assessment and Plan Patient examined. Assessment and plan formulated with Linnette Braun PA-C. I agree with the above. Physician Certification 2 Midnight Certification Type: Admission for Inpatient Services Order for Inpatient Services The services are ordered in accordance with Medicare regulations or non- Medicare payer requirements, as applicable. In the case of services not specified as inpatient-only, they are appropriately provided as inpatient services in accordance with the 2-midnight benchmark. Estimated LOS (days): 2 days is the estimated time the patient will need to remain in the hospital, assuming treatment plan goals are met and no additional complications. Post-Hospital Plan: SNF Problem Qualifiers (1) Diabetes mellitus: (2) Hypertension: Qualified Codes: I10 - Essential (primary) hypertension Linnette Braun Feb 17, 2017 14:30 Valentín Polanco DO Feb 24, 2017 23:50
[2017-02-17] MEDS ORDERED: DEXTROSE 50% IN WATER 50 ML VIAL(D50) IV PUSH PRN (15:00)
[2017-02-17] MEDS ORDERED: GLUCAGON 1 MG/ML VIAL OTHER PRN (15:00)
[2017-02-17] MEDS ORDERED: ceFAZolin INJ 1,000 MG VIAL ONE (15:13)
[2017-02-17] MEDS ORDERED: GENTAMICIN SULFATE 80 MG/2 ML VIAL ONE (15:14)
[2017-02-17] MEDS ORDERED: INSULIN HUMAN REGULAR 1,000 UNITS/10 ML VIAL ONE (16:47)
[2017-02-17] MEDS ORDERED: VANCOMYCIN HCL 1000 MG ON-CALL/NS 250 ML IV SCH ×2 (16:50)
[2017-02-17] MEDS ORDERED: ceFAZolin 2 GM PREMIX 50 ML IV SCH (16:50)
[2017-02-17] MEDS: INSULIN ASPART SUPPLEMENTAL SCALE SQ SCH ×3 (16:50→21:11)
[2017-02-17] MEDS ORDERED: VANCOMYCIN HCL 1000 MG VIAL ONE (17:12)
[2017-02-17] MEDS ORDERED: ceFAZolin 2 GM PREMIX 50 ML ONE (17:13)
[2017-02-17] MEDS ORDERED: SODIUM CHLOR 0.9% 250 ML INJ 250 ML ONE (17:13)
[2017-02-17] MEDS ORDERED: SODIUM CHLORID 0.9% 500 ML IV PRN (17:45)
[2017-02-17] MEDS ORDERED: LACTATED RINGER'S 1000 ML IV PRN (17:45)
[2017-02-17] MEDS ORDERED: METOPROLOL TARTRATE 25 MG TAB PO PRN (17:45)
[2017-02-17] MEDS ORDERED: CHLORHEXIDINE GLUCONATE 2 % 1 PACK (2 CLOTHS) TOPICAL PRN (17:45)
[2017-02-17] MEDS ORDERED: INSULIN HUMAN REGULAR 1,000 UNITS/10 ML VIAL SQ PRN (17:45)
[2017-02-17] MEDS ORDERED: POVIDONE IODINE 5% (ANTISEPSIS KIT) 4 APPLICATIONS EACH NARE PRN (17:45)
[2017-02-17] MEDS ORDERED: diphenhydrAMINE HCL 25 MG CAP PO PRN (18:00)
[2017-02-17] MEDS ORDERED: DEXT 5%-NACL 0.45% 1000 ML INJ 1,000 ML IV SCH (18:00)
[2017-02-17] MEDS ORDERED: MORPHINE SULFATE 2 MG/ML INJ IV PUSH PRN (18:00)
[2017-02-17] MEDS ORDERED: MISCELLANEOUS NURSING INFORMATION XX PRN (18:00)
[2017-02-17] MEDS ORDERED: ACETAMINOPHEN/HYDROcodone 325 MG/7.5 MG TAB PO PRN (18:00)
[2017-02-17] MEDS ORDERED: MISCELLANEOUS PHARMACY INFORMATION XX ONE (18:00)
[2017-02-17] MEDS ORDERED: Post-op Orders (for Pharmacy) XX ONE (18:00)
[2017-02-17] MEDS ORDERED: HYDR-3288 PO (18:03)
[2017-02-17] MEDS ORDERED: ASPI81CH6 CHEW (18:04)
[2017-02-17] MEDS ORDERED: ENOX40P SQ (18:04)
--- NOTE | 2017-02-17 18:45 | MB ---
cc: CASSIA ESTEVEZ M.D. DATE OF CONSULTATION 02/17/2017 REASON FOR CONSULTATION Right intertrochanteric hip fracture. HISTORY OF THE PRESENT ILLNESS A 76-year-old female with a past history of diabetes mellitus, insulin-dependent, first-degree AV block, anemia, hypertension, hyperlipidemia who presented to [facility] Emergency Room after a mechanical fall injuring the right hip. She had severe pain after the fall, was unable to move the hip, bear weigh to ambulate. She was taken to [facility] Emergency Room by ambulance with severe 10/10 pain. She required morphine and Dilaudid in the emergency room to help alleviate her pain. The pain is constant, severe, throbbing, aching. She cannot move the right hip. No numbness or tingling. She had no pain prior to this fall. PAST MEDICAL HISTORY Positive for: 1. Diabetes mellitus. 2. First degree AV block. 3. Anemia. 4. Hypertension. 5. Hyperlipidemia. PAST SURGICAL HISTORY 1. Appendectomy. 2. Cataract. 3. Colonoscopy. 4. Femoral hernia repair. 5. Inguinal hernia repair. 6. Tonsillectomy, adenoidectomy. MEDICATIONS Include: 1. B12. 2. Multivitamin. 3. Micardis. 4. Insulin. 5. Folic acid. 6. Co enzymes Q. 7. Calcium. 8. Atorvastatin. 9. Aspirin. ALLERGIES NO KNOWN DRUG ALLERGIES. FAMILY HISTORY Reviewed and noncontributory. SOCIAL HISTORY She denies tobacco, alcohol or drug use. REVIEW OF SYSTEMS Are negative for 10 systems other than history of present illness. PHYSICAL EXAMINATION VITAL SIGNS: Temperature 97.7, pulse 72, respiration 20, blood pressure 193/81. GENERAL: The patient is awake, alert lying in bed mild distress. HEENT: Normocephalic, atraumatic. Pupils are round. Extraocular muscles intact. NECK: Supple. LUNGS: Clear. HEART: Regular rate and rhythm. ABDOMEN: Soft and nontender. SKIN: Warm, dry, intact. NEUROLOGIC: Exam nonfocal. Awake, alert. No focal deficits. EXTREMITIES: Right lower extremity examination the patient is holding the hip in a shortened and externally rotated position. Pain with any passive motion of the right hip. She can flex and extend her ankle and toes distally. Compartments are soft. LABORATORY DATA White blood cell count is 6.3, hemoglobin 13, hematocrit 38, platelet 265. Sodium 133, potassium 4.2, BUN 17, creatinine 0.84, glucose 329. IMAGING X-ray of the right hip revealed comminuted, displaced intertrochanteric hip fracture. IMPRESSION This patient is a 76-year-old female status post fall, right comminuted, displaced intertrochanteric hip fracture, insulin-dependent diabetes mellitus. PLAN I discussed the diagnosis with the patient as well as her two sons at the bedside. We spoke about the diagnosis and details and we spoke about treatment options including the option of nonoperative treatment versus surgery. Surgery would consist of open reduction internal fixation with intramedullary nailing. The risks of surgery discussed to include but not limited to anesthesia, bleeding, infection, damage to nerves, blood vessels, failure of hardware, blood clots, nonunion, malunion, pulmonary embolism. The patient and the patient's family have asked appropriate questions and they have been answered. The patient does wish to proceed with surgery. Written consent has been obtained. Surgical sites have been marked. Cassia Estevez MD JWM/KK /5:44 PM /5:56 PM MTDKelsey
[2017-02-17] MEDS ORDERED: MEPERIDINE HCL 25 MG/ML VIAL ONE (19:36)
[2017-02-17] MEDS ORDERED: DO NOT ADM ANY ANTICOAGULANT DRUGS PRN (19:36)
--- NOTE | 2017-02-17 19:41 | RADRPT ---
EXAM DATE/TIME: 02/17/2017 18:52 [facility] COMPARISON: HIP RIGHT (AP&LAT 2/3VWS) W AP PELVIS, February 17, 2017, 12:53. INDICATIONS : ORIF rt hip MEDICAL HISTORY : None. SURGICAL HISTORY : None. ENCOUNTER: Subsequent ACUITY: 1 day PAIN SCORE: Non-responsive. LOCATION: Right Hip FINDINGS: Intramedullary moni is present traversing the femur with fixation screws proximally and distally. Ther e is gross anatomical alignment of the fracture fragments. CONCLUSION: Intact postsurgical changes. Tomasa Laura MD on February 17, 2017 at 19:39 Board Certified Radiologist. This report was verified electronically.
[2017-02-17] MEDS: SODIUM CHLOR 0.45% 1000 ML INJ 1,000 ML IV SCH (20:00)
[2017-02-17] MEDS: SODIUM CHLORIDE 0.9% FLUSH 10 ML FLUSH IV FLUSH SCH (20:06)
[2017-02-17] MEDS: ATORVASTATIN 10 MG TAB PO SCH (21:10)
[2017-02-17] MEDS: DOCUSATE SODIUM 50 MG/SENNA 8.6 MG TAB PO SCH (21:10)
[2017-02-18] MEDS: ACETAMINOPHEN/HYDROcodone 325 MG/7.5 MG TAB PO PRN ×4 (00:55→18:24)
[2017-02-18 04:20] VITALS: BP 133/64; PULSE 80; RESP 17; TEMP 98.3; O2SAT 99
[2017-02-18] MEDS: SODIUM CHLOR 0.45% 1000 ML INJ 1,000 ML IV SCH ×3 (06:26→23:56)
--- NOTE | 2017-02-18 06:59 | MP ---
cc: CASSIA ESTEVEZ M.D. DATE OF SURGERY 02/17/2017 PREOPERATIVE DIAGNOSIS Right intertrochanteric hip fracture. POSTOPERATIVE DIAGNOSES Right intertrochanteric hip fracture. PROCEDURE Intramedullary nailing right intertrochanteric hip fracture. SURGEON Dr. Cassia Estevez PARLIAMENTARY ARCHIVIST ELODIA Antunez ANESTHESIA General ESTIMATED BLOOD LOSS 100 cc COMPLICATIONS None IMPLANTS USED Synthes JUSTIFICATION This patient is a 76-year-old female who fell sustaining, a comminuted, displaced right intertrochanteric hip fracture. She was taken to [facility] emergency room. X-rays confirmed the above-named finds and orthopedic surgery consulted. The patient, as well as the patient's family counseled as to the risks, benefits and alternatives to the above-named proposed surgical procedure. They did wish to proceed with surgery. PROCEDURE IN DETAIL A written consent was obtained. The patient was identified by name, taken to the operating room, placed supine on the operating table. General anesthesia was administered as well as two grams of IV Ancef and one gram of IV vancomycin. The right foot placed in the padded traction boot. The left leg placed in a padded well-leg mcmahon. All bony prominences and pressure points were well padded. The right hip prepped and draped using as Isopropyl alcohol, Hibiclens solution and Chloraprep solution. After a time-out was performed, a longitudinal incision made over the lateral aspect of the right hip. The fascial layer was incised and a guidewire was used to gain entrance into the intramedullary canal of the femur. It was cannulated by an entry reamer and subsequently an 11 mm titanium trochanteric femoral nail was inserted into the intramedullary canal of the femur. the 130 degrees locking jig was used to place a guide pin centered into the femoral head on the AP and lateral fluoroscopic projections. This was followed by placement of a 100-mm spiral blade. The top locking screw was secured to create a fix angle sliding construct. Distally, the locking jig was use to place a single lateral to medial transverse static locking screw. Fluoroscopic imaging again confirmed hardware placement fracture reduction. The surgical wounds were thoroughly irrigated with sterile saline solution. The fascial layers were closed with #1 Vicryl sutures, subcutaneous layer closed with 2-0 Vicryl and skin was closed with Dermabond. A sterile dressing applied. The patient tolerated the procedure well with no intraoperative complications noted. Wilian Perdue, physician mobile unit assistant certified, was present during the procedure to include patient positioning and the procedure itself. The medical necessity of a physician mobile unit assistant was indicated in this case due to the complexity of the procedure. He assisted with appropriate manipulation of the leg and also retraction exposure. He assisted with both achieving and maintaining fracture reduction along with implantation of the internal fixation device. MD EMETERIO Brooks/LEANNA /6:53 PM /6:37 AM
[2017-02-18 07:39] LABS: BICARBONATE 25.7 MEQ/L (21.0-32.0); CALCIUM 7.4 MG/DL (8.5-10.1); CREATININE 0.54 MG/DL (0.50-1.00)
[2017-02-18 07:54] LABS: CALCIUM-PROTEIN CORRECTED 8.5 MG/DL (8.5-10.1); TOTAL PROTEIN 5.1 GM/DL (6.4-8.2)
[2017-02-18 07:57] LABS: AUTOMATED NEUTROPHIL # 6.6 TH/MM3 (1.8-7.7); BASOPHIL % 0.2 % (0.0-2.0); EOSINOPHIL % 0.4 % (0.0-4.0); HEMATOCRIT 29.5 % (35.0-46.0); HEMOGLOBIN 9.6 GM/DL (11.6-15.3); LYMPH % 9.2 % (9.0-44.0); LYMPHOCYTE # 0.7 TH/MM3 (1.0-4.8); MEAN CELL VOLUME 100.6 FL (80.0-100.0); MEAN CORPUSCULAR HEMOGLOBIN 32.7 PG (27.0-34.0); MEAN CORPUSCULAR HGB CONC 32.5 % (32.0-36.0); MEAN PLATELET VOLUME 7.3 FL (7.0-11.0); MONO % 7.4 % (0.0-8.0); MONOCYTE # 0.6 TH/MM3 (0-0.9); NEUT % 82.8 % (16.0-70.0); PLATELET COUNT 216 TH/MM3 (150-450); RED BLOOD COUNT 2.93 MIL/MM3 (4.00-5.30); RED CELL DISTRIBUTION WIDTH 14.1 % (11.6-17.2)
[2017-02-18 08:00] VITALS: BP 150/69; PULSE 79; RESP 18; TEMP 98.6; O2SAT 99
--- NOTE | 2017-02-18 08:41 | PD.ORT.PN ---
Subjective Post Op Day #: 1 Subjective Remarks pain tolerable Objective Vitals Vital Signs Date Time Temp Pulse Resp B/P (MAP) Pulse Ox O2 Delivery O2 Flow Rate FiO2 02/18/17 04:20 98.3 80 17 133/64 (87) 99 02/17/17 23:32 97.0 83 17 114/57 (76) 97 02/17/17 21:15 98 Nasal Cannula 2.00 02/17/17 21:09 96.5 80 17 142/65 (90) 98 02/17/17 20:45 97.6 02/17/17 20:45 97.6 77 18 138/63 (88) 100 Nasal Cannula 2 02/17/17 20:30 74 16 146/68 (94) 100 Nasal Cannula 2 02/17/17 20:30 96.3 02/17/17 20:15 96.3 73 16 145/67 (93) 100 Nasal Cannula 2 02/17/17 20:00 72 12 146/65 (92) 100 Nasal Cannula 2 02/17/17 19:45 74 12 148/77 (100) 100 Nasal Cannula 3 02/17/17 19:36 88 12 132/63 (86) 100 Nasal Cannula 3 02/17/17 19:31 88 12 198/79 (118) 100 Nasal Cannula 3 02/17/17 17:03 96.3 85 18 170/65 (100) 100 02/17/17 15:16 78 18 176/72 (106) 96 02/17/17 13:45 82 16 190/74 (112) 96 Room Air 02/17/17 13:43 18 02/17/17 12:37 18 100 02/17/17 12:37 74 100 02/17/17 12:20 97.7 72 20 193/81 (118) 99 I/O 02/17/17 02/17/17 02/17/17 02/18/17 02/18/17 02/18/17 07:00 15:00 23:00 07:00 15:00 23:00 Intake Total 1050 ml 1573 ml Output Total 1250 ml 350 ml Balance -200 ml 1223 ml Intake Oral 480 ml IV Total 450 ml 1093 ml Other 600 ml Output Urine Total 1050 ml 350 ml Estimated Blood Loss 100 ml Other 100 ml # Bowel Movements 0 Result Diagram: 02/18/1718 02/18/1718 Other Results Laboratory Tests Test 02/17/17 12:30 Prothromb Time International Ratio 1.0 RATIO Prothrombin Time 10.0 SEC (9.8-11.6) Imaging Last 24 hours Impressions Hip and Pelvis X-Ray 02/17/17 1233 Signed Impressions: Service Date/Time: Friday, February 17, 2017 12:53 - CONCLUSION: Intertrochanteric fracture right hip Josh Stoner MD FACR Chest X-Ray 02/17/17 1233 Signed Impressions: Service Date/Time: Friday, February 17, 2017 12:48 - CONCLUSION: No acute disease. Wilfrido Mendoza MD Objective Remarks in bed, nad, son in room dressing c/d/i neg jerica nvi Assessment & Plan Ortho Post Op Day #: 1 Problem List: Assessment and Plan s/p R Troch Nail 50% PWB daily dressing changes lovenox d/c planning to snf f/up dr. [place] 2 weeks Jonathan Perdue Feb 18, 2017 08:41
[2017-02-18] MEDS: SODIUM CHLORIDE 0.9% FLUSH 10 ML FLUSH IV FLUSH SCH ×2 (09:00→21:46)
[2017-02-18] MEDS: DOCUSATE SODIUM 50 MG/SENNA 8.6 MG TAB PO SCH ×2 (09:53→21:46)
[2017-02-18] MEDS: MULTIVITAMINS/MINERALS THERAPEUTIC TAB PO SCH (09:53)
[2017-02-18] MEDS: ASPIRIN 81 MG CHEW TAB CHEW SCH (09:53)
[2017-02-18] MEDS: LOSARTAN 50 MG TAB PO SCH (09:53)
[2017-02-18] MEDS: INSULIN ASPART SUPPLEMENTAL SCALE SQ SCH ×4 (09:58→21:46)
[2017-02-18 12:15] VITALS: BP 138/59; PULSE 75; RESP 18; TEMP 98.7; O2SAT 99
[2017-02-18 16:00] VITALS: BP 134/61; PULSE 77; RESP 18; TEMP 98.2; O2SAT 98
[2017-02-18] MEDS: ENOXAPARIN SODIUM 40 MG/0.4 ML SYRINGE SQ SCH (18:24)
[2017-02-18 20:06] VITALS: O2SAT 98
[2017-02-18 20:24] VITALS: BP 162/72; PULSE 84; RESP 18; TEMP 98; O2SAT 100
[2017-02-18] MEDS: MAGNESIUM HYDROXIDE SUSP 30 ML CUP PO PRN (21:45)
[2017-02-18] MEDS: ATORVASTATIN 10 MG TAB PO SCH (21:46)
[2017-02-19] VITALS (8 sets, daily range): BP systolic 124–161; BP diastolic 56–71; PULSE 86–97; RESP 17–18; TEMP 96.8–99.5; O2SAT 95–100
[2017-02-19 07:39] LABS: HEMATOCRIT 28.7 % (35.0-46.0); HEMOGLOBIN 9.8 GM/DL (11.6-15.3); MEAN CELL VOLUME 97.2 FL (80.0-100.0); MEAN CORPUSCULAR HEMOGLOBIN 33.1 PG (27.0-34.0); MEAN CORPUSCULAR HGB CONC 34.1 % (32.0-36.0); MEAN PLATELET VOLUME 7.8 FL (7.0-11.0); PLATELET COUNT 217 TH/MM3 (150-450); RED BLOOD COUNT 2.96 MIL/MM3 (4.00-5.30); RED CELL DISTRIBUTION WIDTH 13.7 % (11.6-17.2); WHITE BLOOD COUNT 7.7 TH/MM3 (4.0-11.0)
[2017-02-19] MEDS ORDERED: INSULIN HUMAN NPH 1,000 UNITS/10 ML VIAL SQ SCH (08:00)
[2017-02-19 08:10] LABS: BICARBONATE 20.2 MEQ/L (21.0-32.0); CALCIUM 8.1 MG/DL (8.5-10.1); CREATININE 0.56 MG/DL (0.50-1.00)
[2017-02-19] MEDS: ASPIRIN 81 MG CHEW TAB CHEW SCH (09:59)
[2017-02-19] MEDS: DOCUSATE SODIUM 50 MG/SENNA 8.6 MG TAB PO SCH ×2 (09:59→20:31)
[2017-02-19] MEDS: LOSARTAN 50 MG TAB PO SCH (10:00)
[2017-02-19] MEDS: SODIUM CHLORIDE 0.9% FLUSH 10 ML FLUSH IV FLUSH SCH ×2 (10:00→20:32)
[2017-02-19] MEDS: MULTIVITAMINS/MINERALS THERAPEUTIC TAB PO SCH (10:00)
[2017-02-19] MEDS: SODIUM CHLOR 0.45% 1000 ML INJ 1,000 ML IV SCH ×2 (10:01→21:45)
[2017-02-19] MEDS: ACETAMINOPHEN/HYDROcodone 325 MG/7.5 MG TAB PO PRN ×3 (10:02→23:16)
[2017-02-19] MEDS: INSULIN ASPART SUPPLEMENTAL SCALE SQ SCH ×5 (10:11→20:32)
--- NOTE | 2017-02-19 10:17 | PD.ORT.PN ---
Subjective Post Op Day #: 2 Subjective Remarks pain tolerable. feeling a little better. Objective Vitals Vital Signs Date Time Temp Pulse Resp B/P (MAP) Pulse Ox O2 Delivery O2 Flow Rate FiO2 02/19/17 08:00 98.0 97 18 141/71 (94) 97 02/19/17 04:32 99.1 96 18 124/56 (78) 98 02/19/17 00:02 98.9 86 18 129/60 (83) 95 02/18/17 20:24 98.0 84 18 162/72 (102) 100 02/18/17 20:06 98 02/18/17 16:00 98.2 77 18 134/61 (85) 98 02/18/17 15:30 18 02/18/17 12:15 98.7 75 18 138/59 (85) 99 I/O 02/18/17 02/18/17 02/18/17 02/19/17 02/19/17 02/19/17 07:00 15:00 23:00 07:00 15:00 23:00 Intake Total 1573 ml 580 ml 360 ml 120 ml Output Total 350 ml 700 ml 900 ml Balance 1223 ml -120 ml -540 ml 120 ml Intake Oral 480 ml 480 ml 360 ml 120 ml IV Total 1093 ml 100 ml Output Urine Total 350 ml 700 ml 900 ml # Voids 7 6 # Bowel Movements 0 0 0 Result Diagram: 02/19/17 0644 02/19/17 0644 Imaging Last 24 hours Impressions Hip and Pelvis X-Ray 02/17/17 1233 Signed Impressions: Service Date/Time: Friday, February 17, 2017 12:53 - CONCLUSION: Intertrochanteric fracture right hip Josh Stoner MD FACR Chest X-Ray 02/17/17 1233 Signed Impressions: Service Date/Time: Friday, February 17, 2017 12:48 - CONCLUSION: No acute disease. Wilfrido Mendoza MD Objective Remarks in bed, nad dressing c/d/i neg homans nvi Assessment & Plan Ortho Post Op Day #: 2 Problem List: Assessment and Plan s/p R Troch Nail 50% PWB daily dressing changes lovenox ortho stable, cleared for d/c d/c planning to snf f/up dr. urbina 2 weeks Jonathan Perdue Feb 19, 2017 10:17
[2017-02-19] MEDS ORDERED: cloNIDine HCL 0.1 MG TAB PO PRN (14:45)
--- NOTE | 2017-02-19 14:46 | HHI.DS ---
Discharge Summary Admission Date Feb 17, 2017 at 14:20 Discharge Date: Feb 21, 2017 Admitting Diagnosis Right Hip Fracture (1) Hip fracture, right Diagnosis: Principal ICD Codes: S72.001A - Fracture of unspecified part of neck of right femur, initial encounter for closed fracture (2) Diabetes mellitus Diagnosis: Principal ICD Codes: E11.9 - Type 2 diabetes mellitus without complications Status: Chronic (3) Hypertension Diagnosis: Secondary ICD Codes: I10 - Essential (primary) hypertension Status: Chronic (4) Hyperlipidemia Diagnosis: Secondary ICD Codes: E78.5 - Hyperlipidemia, unspecified Consultants Dr. Jay, Orthopedic surgery Procedures R intramedullary femoral nail 02/17/17 Brief History This is a 76-year-old female patient with past medical history which includes diabetes mellitus requiring insulin, first-degree AV block, chronic anemia, hypertension, hyperlipidemia who presents the emergency department via EMS status [place] Patient reports that she was looking one way and walking the other way then tripped and fell. On admission patient has shortening and internal rotation of the right lower leg. Patient denies LOC or head trauma. X-ray reviewed and reveals right hip intertrochanteric fracture. Patient is S/P intramedullary femoral nail placement with Dr. Jay 02/17/17. Patient reports pain is tolerable at this time. CBC/BMP: 02/19/17 0644 02/19/17 0644 Significant Findings Laboratory Tests Test 02/17/17 12:30 02/17/17 13:35 02/18/17 05:18 02/19/17 06:44 Red Blood Count 3.97 MIL/MM3 (4.00-5.30) 2.93 MIL/MM3 (4.00-5.30) 2.96 MIL/MM3 (4.00-5.30) Neutrophils (%) (Auto) 70.4 % (16.0-70.0) 82.8 % (16.0-70.0) Activated Partial Thromboplast Time 22.9 SEC (24.3-30.1) Random Glucose 329 MG/DL (74-106) 277 MG/DL (74-106) 289 MG/DL (74-106) Sodium Level 133 MEQ/L (136-145) 134 MEQ/L (136-145) 134 MEQ/L (136-145) Estimat Glomerular Filtration Rate 66 ML/MIN (>89) Urine Glucose (UA) 1000 mg/dL (NEG) Urine Ketones 10 mg/dL (NEG) Urine Mucus FEW /lpf (OCC) Hemoglobin 9.6 GM/DL (11.6-15.3) 9.8 GM/DL (11.6-15.3) Hematocrit 29.5 % (35.0-46.0) 28.7 % (35.0-46.0) Mean Corpuscular Volume 100.6 FL (80.0-100.0) Lymphocytes # (Auto) 0.7 TH/MM3 (1.0-4.8) Total Protein 5.1 GM/DL (6.4-8.2) Calcium Level 7.4 MG/DL (8.5-10.1) 8.1 MG/DL (8.5-10.1) Carbon Dioxide Level 20.2 MEQ/L (21.0-32.0) Imaging Last Impressions Hip and Pelvis X-Ray 02/17/17 1233 Signed Impressions: Service Date/Time: Friday, February 17, 2017 12:53 - CONCLUSION: Intertrochanteric fracture right hip Josh Stoner MD FACR Chest X-Ray 02/17/17 1233 Signed Impressions: Service Date/Time: Friday, February 17, 2017 12:48 - CONCLUSION: No acute disease. Wilfrido Mendoza MD Hip X-Ray 02/17/17 0000 Signed Impressions: Service Date/Time: Friday, February 17, 2017 18:52 - CONCLUSION: Intact postsurgical changes. Tomasa Laura MD PE at Discharge GENERAL: This is a well-nourished, well-developed patient, in no apparent distress. CARDIOVASCULAR: Regular rate and rhythm without murmurs, gallops, or rubs. RESPIRATORY: Clear to auscultation. Breath sounds equal bilaterally. No wheezes , rales, or rhonchi. GASTROINTESTINAL: Abdomen soft, non-tender, nondistended. Normal active bowel sounds MUSCULOSKELETAL: Post-op dressing dry and intact NEURO: Alert & Oriented x4 to person, place, time, situation. Moves all ext x4 Hospital Course Hip fracture, right 76 shows status post trip and fall X-ray reviewed and reveals right hip intertrochanteric fracture Orthopedic surgery consulted [place] by mouth and hydrocodone IV as needed for pain s/p R intramedullary femoral nail 02/17/17 50% PWB 02/19 cleared for DC per Orthopedic surgery Hgb 13.0 ->9.6 (02/18) -> 9.8 (02/19), 11.4 (02/20), 9.7 (02/21) - will d/c to SNF 02/21/17 DVT prophylaxis with lovenox Diabetes mellitus Diabetic diet Accu-Cheks before meals at bedtime with sliding scale insulin coverage Patient's home regimen Novolin N 16 units SQ QAM will start Novolin N 10 units SQ QAM. Blood sugar running high will increase to home Novolin N 16 units daily 02/19 DC cancelled glucose 310. NPH DC, changed to high dose SSI, DC NPH start Levemir - pt give 2 PM doses of levemir 02/19 - 02/21 blood glucose elevated this AM 361, recheck 10:40 AM 334 - Start levemir 5 units SQ BID - DC Novolin N 16 units daily - continue SSI - observe today, if blood sugars improve plan to d/c to SNF this evening Hypertension Continue patient's home Micardis monitor blood pressure trend Clonidine and Vasotec when necessary for hypertension Hyperlipidemia Continue patient's home atorvastatin Pt Condition on Discharge: Stable Discharge Disposition: Discharge to SNF Discharge Instructions DIET: Follow Instructions for: Diabetic Diet Activities you can perform: Partial Weight Bearing Follow up Referrals: Orthopedics - 2 Weeks with Jonathan Jay MD PCP Follow-up - [address] Johnson New Medications: Aspirin (Aspirin Low Dose) 81 Mg Chew 81 MG CHEW BID for Prevent Blood Clot for 30 Days, #60 TAB 0 Refills Enoxaparin Inj (Lovenox Inj) 40 Mg/0.4 Ml Syr 40 MG SQ DAILY for Blood Clot Prevention, #7 SYRINGE 0 Refills Hydrocodone-Acetaminophen ([place]) 7.5-325 mg Tab 1-2 TAB PO Q6H PRN for PAIN, #90 TAB 0 Refills Insulin Aspart Inj (Novolog Inj) 1,000 Unit/10 Ml Vial 2-12 UNITS SQ ACHS for Blood Sugar Management, #10 ML 0 Refills Max dose at bedtime ( ) units; sugars less than 70,(0) units; sugars 150-199,(2) units; sugars 200-249,(4) units; sugars 250-299,(7) units; sugars 300-349,(10) units; sugars greater than 349,(12)units Insulin Detemir Inj (Levemir Inj) 1,000 unit/ 10 ML Vial 5 UNITS SQ Q12HR for blood sugar, #60 INJECTION 0 Refills Do not mix with any other Insulin. Continued Medications: Atorvastatin (Atorvastatin) 10 Mg Tab 10 MG PO HS for Cholesterol Management, #30 TAB 0 Refills Felgayb-Ofbuxswli-Buak (Calcium & Magnesium + Zinc) 334-134-5 Mg Tab 1 TAB PO DAILY, TAB Coenzyme Q10 (Ubidecarenone) (Coq-10) 400 Mg Cap 1 TAB PO DAILY Cyanocobalamin ER (Vitamin B-12 ER) 1,000 Mcg Tab 1000 MCG PO DAILY for Nutritional Supplement, #1 BOTTLE 0 Refills Folic Acid (Folic Acid) 0.4 Mg Tab 400 MCG PO DAILY for Nutritional Supplement, TAB 0 Refills Multiple Vitamin (Multiple Vitamin) 1 Tab 1 TAB PO DAILY for Nutritional Supplement, TAB 0 Refills Telmisartan (Micardis) 40 Mg Tab 40 MG PO DAILY for Blood Pressure Management, #30 TAB 0 Refills Vitamin E (Vitamin E Water Soluble) 1,000 Unit Cap 1000 UNITS PO DAILY for Nutritional Supplement, CAP 0 Refills Discontinued Medications: Aspirin (Aspirin) 81 Mg Chew 81 MG CHEW DAILY, TAB 0 Refills Insulin Human NPH Inj (Novolin N Inj) 1,000 Unit/10 Ml Vial 16 UNITS SQ DAILY for Blood Sugar Management, #10 ML 0 Refills Additional Information Patient examined. Assessment and plan formulated with Linnette Braun PA-C. I agree with the above. Linnette Braun Feb 19, 2017 14:46 Valentín Polanco DO Feb 24, 2017 23:51
[2017-02-19] MEDS ORDERED: NOVOLOGP2 SQ (14:52)
--- NOTE | 2017-02-19 16:53 | HHI.PR ---
Subjective Remarks Patient offers no specific complaints DC cancelled due to blood glucose 310 Objective Vitals Vital Signs Date Time Temp Pulse Resp B/P (MAP) Pulse Ox O2 Delivery O2 Flow Rate FiO2 02/19/17 14:45 134/63 (86) 02/19/17 12:00 98.0 90 18 161/71 (101) 100 02/19/17 08:00 98.0 97 18 141/71 (94) 97 02/19/17 04:32 99.1 96 18 124/56 (78) 98 02/19/17 00:02 98.9 86 18 129/60 (83) 95 02/18/17 20:24 98.0 84 18 162/72 (102) 100 02/18/17 20:06 98 Result Diagram: 02/19/17 0644 02/19/17 0644 Other Results Laboratory Tests Test 02/17/17 12:30 02/17/17 13:35 02/18/17 05:18 02/19/17 06:44 White Blood Count 6.3 TH/MM3 8.0 TH/MM3 7.7 TH/MM3 Red Blood Count 3.97 MIL/MM3 2.93 MIL/MM3 2.96 MIL/MM3 Hemoglobin 13.0 GM/DL 9.6 GM/DL 9.8 GM/DL Hematocrit 38.7 % 29.5 % 28.7 % Mean Corpuscular Volume 97.5 FL 100.6 FL 97.2 FL Mean Corpuscular Hemoglobin 32.6 PG 32.7 PG 33.1 PG Mean Corpuscular Hemoglobin Concent 33.5 % 32.5 % 34.1 % Red Cell Distribution Width 14.0 % 14.1 % 13.7 % Platelet Count 265 TH/MM3 216 TH/MM3 217 TH/MM3 Mean Platelet Volume 7.3 FL 7.3 FL 7.8 FL Neutrophils (%) (Auto) 70.4 % 82.8 % Lymphocytes (%) (Auto) 20.8 % 9.2 % Monocytes (%) (Auto) 6.2 % 7.4 % Eosinophils (%) (Auto) 1.8 % 0.4 % Basophils (%) (Auto) 0.8 % 0.2 % Neutrophils # (Auto) 4.5 TH/MM3 6.6 TH/MM3 Lymphocytes # (Auto) 1.3 TH/MM3 0.7 TH/MM3 Monocytes # (Auto) 0.4 TH/MM3 0.6 TH/MM3 Eosinophils # (Auto) 0.1 TH/MM3 0.0 TH/MM3 Basophils # (Auto) 0.0 TH/MM3 0.0 TH/MM3 CBC Comment DIFF FINAL DIFF FINAL Differential Comment Prothrombin Time 10.0 SEC Prothromb Time International Ratio 1.0 RATIO Activated Partial Thromboplast Time 22.9 SEC Blood Urea Nitrogen 17 MG/DL 13 MG/DL 14 MG/DL Creatinine 0.84 MG/DL 0.54 MG/DL 0.56 MG/DL Random Glucose 329 MG/DL 277 MG/DL 289 MG/DL Total Protein 7.1 GM/DL 5.1 GM/DL Albumin 3.7 GM/DL Calcium Level 8.6 MG/DL 7.4 MG/DL 8.1 MG/DL Alkaline Phosphatase 97 U/L Aspartate Amino Transf (AST/SGOT) 33 U/L Alanine Aminotransferase (ALT/SGPT) 29 U/L Total Bilirubin 0.4 MG/DL Sodium Level 133 MEQ/L 134 MEQ/L 134 MEQ/L Potassium Level 4.2 MEQ/L 4.6 MEQ/L 4.4 MEQ/L Chloride Level 101 MEQ/L 100 MEQ/L 100 MEQ/L Carbon Dioxide Level 24.7 MEQ/L 25.7 MEQ/L 20.2 MEQ/L Anion Gap 7 MEQ/L 8 MEQ/L 14 MEQ/L Estimat Glomerular Filtration Rate 66 ML/MIN 110 ML/MIN 105 ML/MIN Urine Color LIGHT-YELLOW Urine Turbidity CLEAR Urine pH 5.5 Urine Specific [place] 1.018 Urine Protein NEG mg/dL Urine Glucose (UA) 1000 mg/dL Urine Ketones 10 mg/dL Urine Occult Blood NEG Urine Nitrite NEG Urine Bilirubin NEG Urine Urobilinogen LESS THAN 2.0 MG/DL Urine Leukocyte Esterase NEG Urine RBC LESS THAN 1 /hpf Urine WBC LESS THAN 1 /hpf Urine Mucus FEW /lpf Microscopic Urinalysis Comment CATH-CULT NOT IND Hematology Comments Protein Corrected Calcium 8.5 MG/DL Imaging Last Impressions Hip and Pelvis X-Ray 02/17/17 1233 Signed Impressions: Service Date/Time: Friday, February 17, 2017 12:53 - CONCLUSION: Intertrochanteric fracture right hip Josh Stoner MD FACR Chest X-Ray 02/17/17 1233 Signed Impressions: Service Date/Time: Friday, February 17, 2017 12:48 - CONCLUSION: No acute disease. Wilfrido Mendoza MD Objective Remarks GENERAL: This is a well-nourished, well-developed patient, in no apparent distress. CARDIOVASCULAR: Regular rate and rhythm without murmurs, gallops, or rubs. RESPIRATORY: Clear to auscultation. Breath sounds equal bilaterally. No wheezes , rales, or rhonchi. GASTROINTESTINAL: Abdomen soft, non-tender, nondistended. Normal active bowel sounds MUSCULOSKELETAL: Post-op dressing dry and intact NEURO: Alert & Oriented x4 to person, place, time, situation. Moves all ext x4 Procedures R intramedullary femoral nail 02/17/17 A/P Problem List: (1) Hip fracture, right ICD Codes: S72.001A - Fracture of unspecified part of neck of right femur, initial encounter for closed fracture Plan: Hip fracture, right 76 shows status post trip and fall X-ray reviewed and reveals right hip intertrochanteric fracture Orthopedic surgery consulted [place] by mouth and hydrocodone IV as needed for pain s/p R intramedullary femoral nail 02/17/17 50% PWB 02/19 cleared for DC per Orthopedic surgery Hgb 13.0 ->9.6 (02/18) -> 9.8 (02/19) DVT prophylaxis with SCDs further DVT prophylaxis per orthopedic surgery (2) Diabetes mellitus ICD Codes: E11.9 - Type 2 diabetes mellitus without complications Status: Chronic Plan: Diabetes mellitus Diabetic diet Accu-Cheks before meals at bedtime with sliding scale insulin coverage Patient's home regimen Novolin N 16 units SQ QAM will start Novolin N 10 units SQ QAM. Blood sugar running high will increase to home Novolin N 16 units daily 02/19 DC cancelled glucose 310. NPH DC, changed to high dose SSI, DC NPH start Levemir (3) Hypertension ICD Codes: I10 - Essential (primary) hypertension Status: Chronic Plan: Continue patient's home Micardis monitor blood pressure trend Clonidine and Vasotec when necessary for hypertension (4) Hyperlipidemia ICD Codes: E78.5 - Hyperlipidemia, unspecified Plan: Continue patient's home atorvastatin Assessment and Plan Patient examined. Assessment and plan formulated with Linnette Braun PA-C. I agree with the above. Problem Qualifiers (1) Diabetes mellitus: (2) Hypertension: Qualified Codes: I10 - Essential (primary) hypertension Linnette Braun Feb 19, 2017 16:53 Valentín Polanco DO Feb 24, 2017 23:48
[2017-02-19] MEDS ORDERED: GLUCAGON 1 MG/ML VIAL OTHER PRN (17:00)
[2017-02-19] MEDS ORDERED: DEXTROSE 50% IN WATER 50 ML VIAL(D50) IV PUSH PRN (17:00)
[2017-02-19] MEDS: INSULIN DETEMIR 100 UNITS/ML VIAL SQ SCH ×2 (17:39→20:32)
[2017-02-19] MEDS: ENOXAPARIN SODIUM 40 MG/0.4 ML SYRINGE SQ SCH (17:39)
[2017-02-19] MEDS: ATORVASTATIN 10 MG TAB PO SCH (20:31)
--- NOTE | 2017-02-19 23:50 | EKG ---
Date Performed: 02/17/2017 Time Performed: 14:47:13 PTAGE: 76 years EKG: Sinus rhythm WITH OCCASIONAL SUPRAVENTRICULAR PREMATURE COMPLEXES MODERATE ST DEPRESSION ABNORMAL ECG PREVIOUS TRACING : 12/22/2016 08.05 DOCTOR: Emma Ridley Interpretating Date/Time 02/19/2017 23:50:33
[2017-02-20] VITALS (8 sets, daily range): BP systolic 137–158; BP diastolic 60–89; PULSE 88–115; RESP 17–18; TEMP 96–99; O2SAT 95–100
--- NOTE | 2017-02-20 06:13 | HHI.PR ---
Addendum to Inpatient Note Addendum Reason: Additional Documentation Additional Information 76 yo female admitted for hip fracture now POD 3 from hip surgery. 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 Narcan given. Bedside sugar initially 60. Niat called at 0529, 1 amp of D50 given 1 minute later. BSG corrected to 101 at 0531. At 0540 patient awoke to alert and was in that state on MD arrival around 0545. Of note she had received 10 units of levemir at 1740 and 2100 and also 12 units of insulin aspart at 1700 and 4 units at 2100 yesterday evening. Physical Exam Gen: Thin elderly white female sitting up in bed in NAD Vitals: At 0526: BP 160/119, HR 157. On arrival bedside SpO2 was normal on room air. Eyes: PERRL CV: Tachycardic, regular rhythm, no murmur Lungs: CTAB, no crackles or wheezes MSK: Thin extremities, no edema of B/L UE Assessment and Plan 76 yo female POD 3 from hip surgery for a hip fracture with an episode of decreased responsiveness likely due to hypoglycemia - Primary team notified; advised RN to hold insulin until discussed with covering team - Next accu-check in 1-2 hours - Give patient snack - If tachycardia persists, would recommend D-dimer to rule out PE (patient had not been tachycardic) Travis Durbin Dr., MD Feb 20, 2017 06:13
--- NOTE | 2017-02-20 07:02 | PD.ORT.PN ---
Subjective Subjective Remarks Resting comfortably wrapped and blankets. Hypotension overnight Objective Vitals Vital Signs Date Time Temp Pulse Resp B/P (MAP) Pulse Ox O2 Delivery O2 Flow Rate FiO2 02/20/17 00:30 98.6 94 17 138/60 (86) 99 02/19/17 20:25 99.5 97 17 151/65 (93) 100 02/19/17 17:55 99 21 02/19/17 16:00 96.8 87 18 134/63 (86) 100 02/19/17 14:45 134/63 (86) 02/19/17 12:00 98.0 90 18 161/71 (101) 100 02/19/17 08:00 98.0 97 18 141/71 (94) 97 I/O 02/19/17 02/19/17 02/19/17 02/20/17 02/20/17 02/20/17 07:00 15:00 23:00 07:00 15:00 23:00 Intake Total 120 ml 480 ml 360 ml 240 ml Balance 120 ml 480 ml 360 ml 240 ml Intake Oral 120 ml 480 ml 360 ml 240 ml # Voids 6 4 2 2 # Bowel Movements 0 2 0 0 Result Diagram: 02/19/17 0644 02/19/17 0644 Imaging Last 24 hours Impressions Hip and Pelvis X-Ray 02/17/17 1233 Signed Impressions: Service Date/Time: Friday, February 17, 2017 12:53 - CONCLUSION: Intertrochanteric fracture right hip Josh Stoner MD FACR Chest X-Ray 02/17/17 1233 Signed Impressions: Service Date/Time: Friday, February 17, 2017 12:48 - CONCLUSION: No acute disease. Wilfrido Mendoza MD Objective Remarks Right lower extremity: Clean dry dressings intact minimal swelling. Distally intact sensation with good capillary refills. Active dorsiflexion and plantar flexion of foot Assessment & Plan Assessment and Plan s/p R Troch Nail 50% PWB daily dressing changes lovenox ortho stable, cleared for d/c d/c planning to snf f/up dr. urbina 2 weeks Cesar Cuenca Jr. Feb 20, 2017 07:02
[2017-02-20 07:24] LABS: HEMOGLOBIN 11.4 GM/DL (11.6-15.3); MEAN CELL VOLUME 97.3 FL (80.0-100.0); MEAN CORPUSCULAR HEMOGLOBIN 32.8 PG (27.0-34.0); MEAN CORPUSCULAR HGB CONC 33.7 % (32.0-36.0); MEAN PLATELET VOLUME 7.8 FL (7.0-11.0); PLATELET COUNT 278 TH/MM3 (150-450); RED BLOOD COUNT 3.49 MIL/MM3 (4.00-5.30); RED CELL DISTRIBUTION WIDTH 14.1 % (11.6-17.2); WHITE BLOOD COUNT 12.3 TH/MM3 (4.0-11.0)
[2017-02-20] MEDS: SODIUM CHLOR 0.45% 1000 ML INJ 1,000 ML IV SCH ×3 (07:45→20:41)
[2017-02-20 07:48] LABS: CALCIUM 8.8 MG/DL (8.5-10.1); CREATININE 0.58 MG/DL (0.50-1.00)
[2017-02-20] MEDS: INSULIN ASPART SUPPLEMENTAL SCALE SQ SCH ×4 (08:00→20:50)
[2017-02-20] MEDS ORDERED: INSULIN HUMAN NPH 1,000 UNITS/10 ML VIAL SQ SCH (08:00)
[2017-02-20] MEDS: LOSARTAN 50 MG TAB PO SCH (08:54)
[2017-02-20] MEDS: DOCUSATE SODIUM 50 MG/SENNA 8.6 MG TAB PO SCH ×2 (08:54→20:50)
[2017-02-20] MEDS: MULTIVITAMINS/MINERALS THERAPEUTIC TAB PO SCH (08:54)
[2017-02-20] MEDS: ASPIRIN 81 MG CHEW TAB CHEW SCH (08:54)
[2017-02-20] MEDS: SODIUM CHLORIDE 0.9% FLUSH 10 ML FLUSH IV FLUSH SCH ×2 (08:56→20:50)
--- NOTE | 2017-02-20 13:12 | RADRPT ---
EXAM DATE/TIME: 02/20/2017 13:02 [facility] COMPARISON: CHEST SINGLE AP, February 17, 2017, 12:48. INDICATIONS : Cough. MEDICAL HISTORY : None. SURGICAL HISTORY : ORIF right hip. ENCOUNTER: Subsequent ACUITY: 3 days PAIN SCORE: 0/10 LOCATION: Bilateral chest FINDINGS: The cardiac silhouette is normal in transverse diameter. The lungs are free of acute parenchymal opac ity. No effusions are identified. There is prominence of the aortic knob is with calcification charac teristic of atherosclerotic vascular disease. CONCLUSION: 1. No acute cardiopulmonary disease. Bird Apodaca MD on February 20, 2017 at 13:09 Board Certified Radiologist. This report was verified electronically.
--- NOTE | 2017-02-20 16:49 | HHI.PR ---
Subjective Remarks Pt received 2 doses of levemir last night. Pt found unresponsive this AM. Pt was hypoglycemic. Pt treated per hypoglycemic protocol with recovery. Pt has NO new complaints at this time. Objective Vitals Vital Signs Date Time Temp Pulse Resp B/P (MAP) Pulse Ox O2 Delivery O2 Flow Rate FiO2 02/20/17 15:35 100 Nasal Cannula 2.00 02/20/17 12:00 98.6 110 18 141/61 (87) 100 02/20/17 09:51 95 Nasal Cannula 02/20/17 08:00 96.0 100 18 158/89 (112) 100 02/20/17 00:30 98.6 94 17 138/60 (86) 99 02/19/17 20:25 99.5 97 17 151/65 (93) 100 02/19/17 17:55 99 21 Result Diagram: 02/20/17 0540 02/20/17 0540 Imaging Last Impressions Chest X-Ray 02/20/17 0000 Signed Impressions: Service Date/Time: Monday, February 20, 2017 13:02 - CONCLUSION: 1. No acute cardiopulmonary disease. Bird Apodaca MD Hip and Pelvis X-Ray 02/17/17 1233 Signed Impressions: Service Date/Time: Friday, February 17, 2017 12:53 - CONCLUSION: Intertrochanteric fracture right hip Josh Stoner MD FACR Hip X-Ray 02/17/17 0000 Signed Impressions: Service Date/Time: Friday, February 17, 2017 18:52 - CONCLUSION: Intact postsurgical changes. Tomasa Laura MD Objective Remarks GENERAL: This is a well-nourished, well-developed patient, in no apparent distress. CARDIOVASCULAR: Regular rate and rhythm without murmurs, gallops, or rubs. RESPIRATORY: Clear to auscultation. Breath sounds equal bilaterally. No wheezes , rales, or rhonchi. GASTROINTESTINAL: Abdomen soft, non-tender, nondistended. Normal active bowel sounds MUSCULOSKELETAL: Post-op dressing dry and intact NEURO: Alert & Oriented x4 to person, place, time, situation. Moves all ext x4 Procedures R intramedullary femoral nail 02/17/17 A/P Problem List: (1) Hip fracture, right ICD Codes: S72.001A - Fracture of unspecified part of neck of right femur, initial encounter for closed fracture Plan: Hip fracture, right 76 shows status post trip and fall X-ray reviewed and reveals right hip intertrochanteric fracture Orthopedic surgery consulted [place] by mouth and hydrocodone IV as needed for pain s/p R intramedullary femoral nail 02/17/17 50% PWB 02/19 cleared for DC per Orthopedic surgery Hgb 13.0 ->9.6 (02/18) -> 9.8 (02/19), 11.4 (02/20) - will d/c to SNF 02/21/17 DVT prophylaxis with SCDs further DVT prophylaxis per orthopedic surgery (2) Diabetes mellitus ICD Codes: E11.9 - Type 2 diabetes mellitus without complications Status: Chronic Plan: Diabetes mellitus Diabetic diet Accu-Cheks before meals at bedtime with sliding scale insulin coverage Patient's home regimen Novolin N 16 units SQ QAM will start Novolin N 10 units SQ QAM. Blood sugar running high will increase to home Novolin N 16 units daily 02/19 DC cancelled glucose 310. NPH DC, changed to high dose SSI, DC NPH start Levemir - pt give 2 PM doses of levemir 02/19 - levemir stopped - resume pt's outpt dosing of Novolin N 16 units daily - continue SSI - observe overnight, if pt remains stable then d/c to SNF in AM (3) Hypertension ICD Codes: I10 - Essential (primary) hypertension Status: Chronic Plan: Continue patient's home Micardis monitor blood pressure trend Clonidine and Vasotec when necessary for hypertension (4) Hyperlipidemia ICD Codes: E78.5 - Hyperlipidemia, unspecified Plan: Continue patient's home atorvastatin Problem Qualifiers (1) Diabetes mellitus: (2) Hypertension: Qualified Codes: I10 - Essential (primary) hypertension Valentín Polanco DO Feb 20, 2017 16:49
[2017-02-20] MEDS: ENOXAPARIN SODIUM 40 MG/0.4 ML SYRINGE SQ SCH (17:29)
[2017-02-20] MEDS ORDERED: BISACODYL 10 MG SUPP RECTAL PRN (17:45)
[2017-02-20] MEDS: ATORVASTATIN 10 MG TAB PO SCH (20:50)
[2017-02-20] MEDS: MAGNESIUM HYDROXIDE SUSP 30 ML CUP PO PRN (20:50)
[2017-02-20] MEDS: ACETAMINOPHEN/HYDROcodone 325 MG/7.5 MG TAB PO PRN (20:50)
[2017-02-20 21:37] LABS: BACTERIA, URINE RARE /hpf; BILIRUBIN, URINE NEG (NEG); BLOOD, URINE NEG (NEG); GLUCOSE,URINE 1000 mg/dL (NEG); KETONE, URINE 40 mg/dL (NEG); MUCUS URINE FEW /lpf (OCC); NITRITE,URINE NEG (NEG); SQUAMOUS EPITHELIAL CELL URINE <1 /hpf (0-5); URINE COLOR YELLOW (YELLW/STRAW); URINE LEUKOCYTE ESTERASE NEG (NEG)
--- NOTE | 2017-02-21 07:06 | PD.ORT.PN ---
Subjective Subjective Remarks Resting comfortably, improving Objective Vitals Vital Signs Date Time Temp Pulse Resp B/P (MAP) Pulse Ox O2 Delivery O2 Flow Rate FiO2 02/20/17 23:32 98.2 88 17 138/65 (89) 98 02/20/17 20:40 97 Nasal Cannula 2.00 02/20/17 19:55 99.0 115 18 139/64 (89) 97 02/20/17 16:00 98.5 103 18 137/68 (91) 100 02/20/17 15:35 100 Nasal Cannula 2.00 02/20/17 12:00 98.6 110 18 141/61 (87) 100 02/20/17 09:51 95 Nasal Cannula 02/20/17 08:00 96.0 100 18 158/89 (112) 100 I/O 02/20/17 02/20/17 02/20/17 02/21/17 02/21/17 02/21/17 07:00 15:00 23:00 07:00 15:00 23:00 Intake Total 240 ml 720 ml 480 ml 480 ml Balance 240 ml 720 ml 480 ml 480 ml Intake Oral 240 ml 720 ml 480 ml 480 ml # Voids 2 5 4 4 # Bowel Movements 0 0 0 1 Result Diagram: 02/20/17 0540 02/20/17 0540 Imaging Last 24 hours Impressions Hip and Pelvis X-Ray 02/17/17 1233 Signed Impressions: Service Date/Time: Friday, February 17, 2017 12:53 - CONCLUSION: Intertrochanteric fracture right hip Josh Stoner MD FACR Chest X-Ray 02/17/17 1233 Signed Impressions: Service Date/Time: Friday, February 17, 2017 12:48 - CONCLUSION: No acute disease. Wilfrido Mendoza MD Objective Remarks Right lower extremity: Clean dry dressings intact minimal swelling. Distally intact sensation with good capillary refills. Active dorsiflexion and plantar flexion of foot Assessment & Plan Assessment and Plan s/p R Troch Nail 50% PWB daily dressing changes lovenox ortho stable, cleared for d/c d/c planning to snf today f/up dr. [place] 2 weeks Cesar Cuenca Jr. Feb 21, 2017 07:06
[2017-02-21 08:00] VITALS: BP 155/66; PULSE 86; RESP 18; TEMP 97.4; O2SAT 100
[2017-02-21] MEDS: INSULIN ASPART SUPPLEMENTAL SCALE SQ SCH ×3 (08:00→17:00)
[2017-02-21] MEDS: LOSARTAN 50 MG TAB PO SCH (08:42)
[2017-02-21] MEDS: DOCUSATE SODIUM 50 MG/SENNA 8.6 MG TAB PO SCH (08:42)
[2017-02-21] MEDS: MULTIVITAMINS/MINERALS THERAPEUTIC TAB PO SCH (08:42)
[2017-02-21] MEDS: ASPIRIN 81 MG CHEW TAB CHEW SCH (08:43)
[2017-02-21] MEDS: SODIUM CHLORIDE 0.9% FLUSH 10 ML FLUSH IV FLUSH SCH (08:43)
[2017-02-21] MEDS ORDERED: INSULIN HUMAN NPH 1,000 UNITS/10 ML VIAL SQ SCH (09:00)
[2017-02-21 09:40] LABS: AUTOMATED NEUTROPHIL # 5.9 TH/MM3 (1.8-7.7); BASOPHIL % 0.5 % (0.0-2.0); EOSINOPHIL # 0.1 TH/MM3 (0-0.4); EOSINOPHIL % 1.6 % (0.0-4.0); HEMATOCRIT 29.2 % (35.0-46.0); HEMOGLOBIN 9.7 GM/DL (11.6-15.3); LYMPHOCYTE # 0.7 TH/MM3 (1.0-4.8); MEAN CELL VOLUME 97.6 FL (80.0-100.0); MEAN CORPUSCULAR HEMOGLOBIN 32.3 PG (27.0-34.0); MEAN CORPUSCULAR HGB CONC 33.1 % (32.0-36.0); MEAN PLATELET VOLUME 7.6 FL (7.0-11.0); MONO % 7.1 % (0.0-8.0); MONOCYTE # 0.5 TH/MM3 (0-0.9); NEUT % 80.8 % (16.0-70.0); PLATELET COUNT 242 TH/MM3 (150-450); RED BLOOD COUNT 2.99 MIL/MM3 (4.00-5.30); WHITE BLOOD COUNT 7.3 TH/MM3 (4.0-11.0)
--- NOTE | 2017-02-21 10:43 | HHI.PR ---
Subjective Remarks Patient reports feeling well blood sugar elevated this AM 361 Objective Vitals Vital Signs Date Time Temp Pulse Resp B/P (MAP) Pulse Ox O2 Delivery O2 Flow Rate FiO2 02/21/17 08:00 97.4 86 18 155/66 (95) 100 02/20/17 23:32 98.2 88 17 138/65 (89) 98 02/20/17 20:40 97 Nasal Cannula 2.00 02/20/17 19:55 99.0 115 18 139/64 (89) 97 02/20/17 16:00 98.5 103 18 137/68 (91) 100 02/20/17 15:35 100 Nasal Cannula 2.00 02/20/17 12:00 98.6 110 18 141/61 (87) 100 Result Diagram: 02/21/17 0856 02/20/17 0540 Other Results Laboratory Tests Test 02/19/17 06:44 02/20/17 05:40 02/20/17 21:10 02/21/17 08:56 White Blood Count 7.7 TH/MM3 12.3 TH/MM3 7.3 TH/MM3 Red Blood Count 2.96 MIL/MM3 3.49 MIL/MM3 2.99 MIL/MM3 Hemoglobin 9.8 GM/DL 11.4 GM/DL 9.7 GM/DL Hematocrit 28.7 % 34.0 % 29.2 % Mean Corpuscular Volume 97.2 FL 97.3 FL 97.6 FL Mean Corpuscular Hemoglobin 33.1 PG 32.8 PG 32.3 PG Mean Corpuscular Hemoglobin Concent 34.1 % 33.7 % 33.1 % Red Cell Distribution Width 13.7 % 14.1 % 14.0 % Platelet Count 217 TH/MM3 278 TH/MM3 242 TH/MM3 Mean Platelet Volume 7.8 FL 7.8 FL 7.6 FL Blood Urea Nitrogen 14 MG/DL 16 MG/DL Creatinine 0.56 MG/DL 0.58 MG/DL Random Glucose 289 MG/DL 83 MG/DL Calcium Level 8.1 MG/DL 8.8 MG/DL Sodium Level 134 MEQ/L 138 MEQ/L Potassium Level 4.4 MEQ/L 4.1 MEQ/L Chloride Level 100 MEQ/L 103 MEQ/L Carbon Dioxide Level 20.2 MEQ/L 26.0 MEQ/L Anion Gap 14 MEQ/L 9 MEQ/L Estimat Glomerular Filtration Rate 105 ML/MIN 101 ML/MIN Urine Color YELLOW Urine Turbidity CLEAR Urine pH 6.0 Urine Specific [place] 1.021 Urine Protein 30 mg/dL Urine Glucose (UA) 1000 mg/dL Urine Ketones 40 mg/dL Urine Occult Blood NEG Urine Nitrite NEG Urine Bilirubin NEG Urine Urobilinogen LESS THAN 2.0 MG/DL Urine Leukocyte Esterase NEG Urine RBC 1 /hpf Urine WBC 2 /hpf Urine Squamous Epithelial Cells <1 /hpf Urine Bacteria RARE /hpf Urine Mucus FEW /lpf Microscopic Urinalysis Comment CULT NOT INDICATED Neutrophils (%) (Auto) 80.8 % Lymphocytes (%) (Auto) 10.0 % Monocytes (%) (Auto) 7.1 % Eosinophils (%) (Auto) 1.6 % Basophils (%) (Auto) 0.5 % Neutrophils # (Auto) 5.9 TH/MM3 Lymphocytes # (Auto) 0.7 TH/MM3 Monocytes # (Auto) 0.5 TH/MM3 Eosinophils # (Auto) 0.1 TH/MM3 Basophils # (Auto) 0.0 TH/MM3 CBC Comment DIFF FINAL Differential Comment Imaging Last Impressions Chest X-Ray 02/20/17 0000 Signed Impressions: Service Date/Time: Monday, February 20, 2017 13:02 - CONCLUSION: 1. No acute cardiopulmonary disease. Bird Apodaca MD Hip and Pelvis X-Ray 02/17/17 1233 Signed Impressions: Service Date/Time: Friday, February 17, 2017 12:53 - CONCLUSION: Intertrochanteric fracture right hip Josh Stoner MD FACR Hip X-Ray 02/17/17 0000 Signed Impressions: Service Date/Time: Friday, February 17, 2017 18:52 - CONCLUSION: Intact postsurgical changes. Tomasa Laura MD Objective Remarks GENERAL: This is a well-nourished, well-developed patient, in no apparent distress. CARDIOVASCULAR: Regular rate and rhythm without murmurs, gallops, or rubs. RESPIRATORY: Clear to auscultation. Breath sounds equal bilaterally. No wheezes , rales, or rhonchi. GASTROINTESTINAL: Abdomen soft, non-tender, nondistended. Normal active bowel sounds MUSCULOSKELETAL: Post-op dressing dry and intact NEURO: Alert & Oriented x4 to person, place, time, situation. Moves all ext x4 Procedures R intramedullary femoral nail 02/17/17 A/P Problem List: (1) Hip fracture, right ICD Codes: S72.001A - Fracture of unspecified part of neck of right femur, initial encounter for closed fracture Plan: Hip fracture, right 76 shows status post trip and fall X-ray reviewed and reveals right hip intertrochanteric fracture Orthopedic surgery consulted [facility] by mouth and hydrocodone IV as needed for pain s/p R intramedullary femoral nail 02/17/17 50% PWB 02/19 cleared for DC per Orthopedic surgery Hgb 13.0 ->9.6 (02/18) -> 9.8 (02/19), 11.4 (02/20), 9.7 (02/21) - will d/c to SNF 02/21/17 DVT prophylaxis with SCDs further DVT prophylaxis per orthopedic surgery (2) Diabetes mellitus ICD Codes: E11.9 - Type 2 diabetes mellitus without complications Status: Chronic Plan: Diabetes mellitus Diabetic diet Accu-Cheks before meals at bedtime with sliding scale insulin coverage Patient's home regimen Novolin N 16 units SQ QAM will start Novolin N 10 units SQ QAM. Blood sugar running high will increase to home Novolin N 16 units daily 02/19 DC cancelled glucose 310. NPH DC, changed to high dose SSI, DC NPH start Levemir - pt give 2 PM doses of levemir 02/19 - 02/21 blood glucose elevated this AM 361, recheck 10:40 AM 334 - Start levemir 5 units SQ BID - DC Novolin N 16 units daily - continue SSI - observe today, if blood sugars improve plan to d/c to SNF this evening (3) Hypertension ICD Codes: I10 - Essential (primary) hypertension Status: Chronic Plan: Continue patient's home Micardis monitor blood pressure trend Clonidine and Vasotec when necessary for hypertension (4) Hyperlipidemia ICD Codes: E78.5 - Hyperlipidemia, unspecified Plan: Continue patient's home atorvastatin Assessment and Plan Patient examined. Assessment and plan formulated with Linnette Braun PA-C. I agree with the above. Problem Qualifiers (1) Diabetes mellitus: (2) Hypertension: Qualified Codes: I10 - Essential (primary) hypertension Linnette Braun Feb 21, 2017 10:43 Valentín Polanco DO Feb 24, 2017 23:49
[2017-02-21] MEDS ORDERED: LEVEMIR SQ (10:45)
[2017-02-21] MEDS ORDERED: INSULIN DETEMIR 100 UNITS/ML VIAL SQ SCH (11:00)
[2017-02-21 12:00] VITALS: BP 136/59; PULSE 108; RESP 18; TEMP 99.4; O2SAT 99
[2017-02-21] MEDS: SODIUM CHLOR 0.45% 1000 ML INJ 1,000 ML IV SCH (13:45)
[2017-02-21 14:30] VITALS: BP 152/70
[2017-02-21 16:00] VITALS: BP 139/69; PULSE 104; RESP 18; TEMP 96.7; O2SAT 100
[2017-02-21] MEDS: ACETAMINOPHEN/HYDROcodone 325 MG/7.5 MG TAB PO PRN (17:35)
[2017-02-21] MEDS: ENOXAPARIN SODIUM 40 MG/0.4 ML SYRINGE SQ SCH (17:36)
== END 2017-02-21 18:56 | DRG 482 ==
LOC: HOR 12:12 → NEDA 14:20 → N06A 15:29
PROVIDERS: ADMIT Hospitalist; ATTEND Hospitalist
PROC: 0QS606Z Reposition Right Upper Femur with Intramedullary Internal Fixation Device, Open Approach (ICD-10-PCS; 2017-02-17)
PROC: 0T9B70Z Drainage of Bladder with Drainage Device, Via Natural or Artificial Opening (ICD-10-PCS; principal; 2017-02-17 17:59)
DX: S72.141A Displaced intertrochanteric fracture of right femur, initial encounter for closed fracture (principal); E11.9 Type 2 diabetes mellitus without complications; I10 Essential (primary) hypertension; Z79.4 Long term (current) use of insulin; E78.5 Hyperlipidemia, unspecified; I44.0 Atrioventricular block, first degree; M81.0 Age-related osteoporosis without current pathological fracture; W01.0XXA Fall on same level from slipping, tripping and stumbling without subsequent striking against object, initial encounter; Y93.01 Activity, walking, marching and hiking; Y92.59 Other trade areas as the place of occurrence of the external cause
CPT/HCPCS: 51702; 71045; 73502; 76000; 80048; 80053; 81001; 82948; 84155; 85025; 85027; 85610; 85730; 86850; 86900; 86901; 93005; 94150; 96374; 96375; C1713; J0690; J1170; J1580; J1650; J1815; J2175; J2310; J2405; J3010; J3370; J7050; J7120